=== PATIENT | female | born 1935 | race Caucasian/White ===

== ENCOUNTER → 2018-06-24 10:47 | Outpatient (CLI) | payer MEDICARE, SELFPAY ==
[2018-06-24 12:20] LABS: Alanine Aminotransferase 27 IU/L (9-52); Aspartate Aminotransferase 21 IU/L (14-36); BUN Creatinine Ratio 25.8 (6-22); Blood Urea Nitrogen 31 mg/dL (7-17); Calcium 9.2 mg/dL (8.4-10.2); Carbon Dioxide 23 mmol/L (22-32); Chloride 105 mmol/L (98-107); Cholesterol 107 mg/dL (140-199); Estimated Glomerular Filt Rate 43.2 mL/min (>60); Glucose 99 mg/dL (80-110); HDL Cholesterol 37 mg/dL (40-60); HEMOLYSIS < 15 (0-50); LDL Cholesterol Calculated 27 mg/dL (<100); Sodium 138 mmol/L (137-145); Triglycerides 215 mg/dL (35-150)
[2018-06-24 12:27] LABS: Potassium 5.5 mmol/L (3.4-5.1)
[2018-06-24 12:47] LABS: TSH w/ Reflex to FT4 8.27 uIU/mL (0.47-4.68)
[2018-06-24 13:31] LABS: Free T4, Direct Thyroxine 1.28 ng/dL (0.78-2.19)
== END ==
PROVIDERS: PCP Internal Medicine; Visit Provider Internal Medicine
DX: I10 Essential (primary) hypertension (principal); E78.5 Hyperlipidemia, unspecified; E03.9 Hypothyroidism, unspecified
CPT/HCPCS: 36415; 80048; 80061; 84439; 84443; 84450; 84460

== ENCOUNTER 2018-08-26 13:27 | Emergency (ER) | payer MEDICARE, SELFPAY ==
[2018-08-26 13:36] VITALS: BP 134/80; PULSE 85; RESP 15; TEMP 36.7; O2SAT 96
--- NOTE | 2018-08-26 14:32 | ED_ITS ---
HPI - Weakness General Chief complaint: Weakness Stated complaint: POTENTIAL DEHYRDATION Time Seen by Provider: 08/26/18 13:40 Source: patient Mode of arrival: ambulatory Limitations: no limitations History of Present Illness HPI Narrative: Patient complains of generalized weakness and fatigue for the last several weeks. She states she does not feel ill in any other way but that she constantly feels as though she has very low energy. Patient denies any fevers, chills, nausea, vomiting, diarrhea, cough, shortness of breath, chest pain, or abdominal pain. No urinary symptoms. No back pain. Severity: moderate Context: other (See above) Associated symptoms: denies other symptoms Related Data Home Medications Medication Instructions Recorded Confirmed amlodipine [Norvasc] 5 mg PO QDAY #0 05/06/13 08/26/18 pravastatin [Pravachol] 80 mg PO Q DAY #0 05/06/13 08/26/18 levothyroxine 100 mcg PO DAILY 08/26/18 08/26/18 losartan 50 mg PO DAILY 08/26/18 08/26/18 ranitidine HCl 1 tab PO DAILY PRN 08/26/18 08/26/18 Previous Rx's Medication Instructions Recorded ciprofloxacin HCl [Cipro] 500 mg PO BID #14 tab 08/26/18 levothyroxine 150 mcg PO DAILY #30 cap 08/26/18 potassium chloride 20 meq PO DAILY #105 ml 08/26/18 Allergies Allergy/AdvReac Type Severity Reaction Status Date / Time ginkgo biloba Allergy Mild GI UPSET Verified 08/26/18 13:36 Sulfa (Sulfonamide Allergy Mild FACIAL Verified 08/26/18 13:36 Antibiotics) SWELLING Review of Systems Review of Systems All systems reviewed & are unremarkable except as noted in HPI and below Constitutional Denies chills, Denies fever(s), Denies lethargy and Reports weakness Eyes Denies change in vision, Denies eye discharge, Denies irritation and Denies loss of vision ENT Ears, Nose, Mouth, and Throat: Denies change in voice, Denies neck pain and Denies sore throat Cardiovascular Denies chest pain, Denies irregular heart rhythm, Denies lightheadedness, Denies palpitations, Denies dyspnea, Denies dyspnea on exertion and Denies orthopnea Respiratory Denies cough, Denies dyspnea, Denies dyspnea on exertion and Denies wheezing Gastrointestinal Gastrointestinal: Denies abdominal pain, Denies change in bowel habits, Denies diarrhea, Denies nausea and Denies vomiting Genitourinary Denies hematuria, Denies flank pain, Denies urinary incontinence and Denies urinary urgency Musculoskeletal Denies neck pain Integumentary/Breasts Denies pruritus, Denies erythema, Denies rash and Denies wounds Neurologic Denies confusion, Denies loss of vision and Reports weakness Psychiatric Denies anxiety, Denies confusion, Denies depression, Denies homicidal ideation and Denies suicidal ideation Endocrine Denies palpitations Hematologic/Lymphatic Denies easy bruising Allergic/Immunologic Denies wheezing [facility] Medical History HTN (hypertension) (Acute) Hypothyroidism (Acute) Surgical History No pertinent past surgical history (Acute) Social History household members: none Exam Initial Vital Signs Initial Vital Signs: Vital Signs Temperature 98.0 F 08/26/18 13:36 Pulse Rate 85 08/26/18 13:36 Respiratory Rate 15 08/26/18 13:36 Blood Pressure 134/80 08/26/18 13:36 Pulse Oximetry 96 08/26/18 13:36 Const General: cooperative and well developed Nutritional Appearance: well nourished Orientation: alert, awake, oriented x3 and not confused [facility] Head: normocephalic and atraumatic Ears: external ears normal Nose: external nose normal and No nasal discharge Face and sinus: face symmetric and No dry mucous membranes Mouth: oral mucosae normal and moist mucous membranes Teeth and gingiva: dentition normal Eyes General: appearance normal, both eyes and all related structures Eyelids: eyelids normal Conjunctivae: conjunctivae normal Sclera: sclerae normal Pupils: PERRL EOM: EOM intact bilaterally Neck Neck: normal visual inspection, trachea midline, No lymphadenopathy, No midline deformity and No JVD Lymphatic: No lymphedema Chest Chest: normal inspection of the chest Resp Effort & Inspection: normal respiratory effort, able to speak in complete sentences, no respiratory distress and no use of accessory muscles Auscultation: clear to auscultation bilaterally, no rales, no rhonchi and no wheezes Cardio Rate: regular rate Rhythm: regular rhythm Heart Sounds: no click, no gallops, no murmurs and no rubs Pulses: normal peripheral pulses GI Inspection: non-distended Palpation: soft, no hepatosplenomegaly, No guarding, No pulsatile mass and No tender Auscultation: normal bowel sounds Back/Spine/Pelvis Back: No CVA tenderness Cervical Spine: cervical ROM normal and No pain with cervical ROM Thoracic/Lumbar Spine: thoracic and lumbar spine normal to inspection Skin General: no rashes or lesions noted, No jaundice and No petechiae Neuro General: alert, oriented x3, gait normal and no focal motor deficits Speech: speech normal Extrem General: full ROM, no clubbing, cyanosis or edema, no pedal edema and no calf tenderness Psych Appearance: well kempt Mental Status: mental status grossly normal Attitude: cooperative Thought Content: normal and suicidality Judgment: judgment good Course Course Narrative: Patient was worked up for her generalized weakness and fatigue with labs and urinalysis. She was found have a urinary tract infection , hypokalemia, anemia, and a TSH of 19.3. I did look back at [facility] previous records and found that in June, her TSH was just over 8. Patient has been on Synthroid for a little over a year she states and she is currently at a dose of 100 mcg per day. I have discussed with the patient that in addition to treating the temporary conditions urinary tract infection and hypokalemia, we will also need to adjust her Synthroid. I will put her up to 150 mcg per day, but she will need to see her primary care physician to determine whether this is a good long-term plan. Patient's brother is present, and states he will call the clinic tomorrow and set up an appointment to her physician soon. Patient was treated in the emergency department with IV fluids , as well as antibiotics and potassium. Orders Ordered: ED Orders 08/26/18 13:56 Complete Blood Count AUTO DIFF Stat Comprehensive Metabolic Panel Stat 08/26/18 15:58 Thyroid Stimulating Hormone Stat 08/26/18 16:51 Urine Culture Stat Discontinued Medications Ciprofloxacin (Cipro) 500 mg PO NOW ONE Stop: 08/26/18 17:01 Last Admin: 08/26/18 17:07 Dose: 500 mg Sodium Chloride (Normal Saline 0.9%) 1,000 mls @ 1,000 mls/hr IV BOLUS ONE Stop: 08/26/18 15:31 Last Admin: 08/26/18 14:37 Dose: 1,000 mls/hr Potassium Chloride (Klor-Con M20) 40 meq PO NOW ONE Stop: 08/26/18 17:16 Last Admin: 08/26/18 17:16 Dose: 40 meq Vital Signs - 8 hr 08/26/18 13:36 08/26/18 14:53 08/26/18 17:05 Temperature 98.0 F Pulse Rate 85 59 L 82 Respiratory Rate 15 18 Blood Pressure 134/80 Blood Pressure [Right Arm] 121/60 114/68 Pulse Oximetry 96 98 99 MDM - Weakness Medical Records Attestation: I reviewed the patient's medical records. Lab Data Attestation: I reviewed the patient's lab results. Result diagrams: 08/26/18 13:56 08/26/18 13:56 Lab Results 08/26/18 08/26/18 08/26/18 Range/Units 13:56 13:56 13:56 WBC 10.8 (4.5-11.0) X10^3/uL RBC 3.46 L (4.0-5.2) X10^6/uL Hgb 8.3 L (12.0-16.0) g/dL Hct 25.9 L (36-46) % MCV 75.0 L (80-100) fL MCH 23.9 L (26-34) PG MCHC 31.8 (30-36) % RDW 19.6 H (11.6-14.8) % Plt Count 417 H (150-400) X10^3/uL Neut % (Auto) 78.7 H (50-75) % Lymph % (Auto) 11.9 L (25-40) % Emanuel % (Auto) 6.9 (3-14) % Eos % (Auto) 1.6 L (2-4) % Baso % (Auto) 0.9 (0-2) % Neut # (Auto) 8500 H (4132-1207) /uL Sodium 141 (137-145) mmol/L Potassium 3.0 L (3.4-5.1) mmol/L Chloride 106 (98-107) mmol/L Carbon Dioxide 24 (22-32) mmol/L BUN 16 (7-17) mg/dL Creatinine 0.90 (0.52-1.04) mg/dL Estimated GFR > 60.0 (>60) mL/min BUN/Creatinine Ratio 17.8 (6-22) Glucose 98 (80-110) mg/dL Calcium 8.3 L (8.4-10.2) mg/dL Total Bilirubin 0.5 (0.2-1.3) mg/dL AST 16 (14-36) IU/L ALT 18 (9-52) IU/L Alkaline Phosphatase 63 (38-126) U/L Total Protein 5.7 L (6.3-8.2) g/dL Albumin 2.8 L (3.5-5.0) g/dL Globulin 2.9 (1.7-4.1) g/dL Albumin/Globulin Ratio 1.0 (1.0-2.8) TSH 19.30 H (0.47-4.68) uIU/mL Urine Dip Bedside Urine Glucose Negative Bedside Urine Bilirubin + 1 Bedside Urine Ketone - Negative Urine Specific [place] 1.025 Bedside Urine Occult Blood - Negative Bedside Urine pH 6.0 Bedside Urine Protein - Negative Bedside Urine Urobilinogen - Negative Bedside Urine Nitrite + Positive Bedside Urine Leukocytes +/- 15 Esterase Discharge Plan Departure Patient Disposition: Home Clinical Impression: Hypothyroidism, Acute UTI, Hypokalemia Discharge Date/Time: 08/26/18 17:26 Interventions: ED Discharge Assessment Last Done: 08/26/18 17:24 Instructions: DI for Urinary Tract Infection (UTI), DI for Hypothyroidism Activity Restrictions/Additional Instructions: Urinalysis was positive for infection. Your thyroid stimulating hormone (the hormone from your brain that tells your thyroid to work) was very very high today. In fact, it was over twice as high as it was in June. As such, we will increase your dose of Synthroid, but it is very important that he follow up with your primary doctor to discuss what to do after this. Prescriptions: New ciprofloxacin HCl [Cipro] 500 mg tablet 500 mg PO BID Qty: 14 RF: 0 levothyroxine 150 mcg capsule 150 mcg PO DAILY Qty: 30 RF: 0 potassium chloride 20 mEq/15 mL liquid 20 meq PO DAILY Qty: 105 RF: 0 No Action amlodipine [Norvasc] 5 MG tablet 5 mg PO QDAY Qty: 0 RF: 0 pravastatin [Pravachol] 80 MG tablet 80 mg PO Q DAY Qty: 0 RF: 0 losartan 50 mg tablet 50 mg PO DAILY RF: 0 levothyroxine 100 mcg tablet 100 mcg PO DAILY RF: 0 ranitidine HCl 150 mg tablet 1 tab PO DAILY PRN (Reason: Acid Reflux) RF: 0 Referrals: Lucrecia Morgan MD [Primary Care Provider] -
[2018-08-26 14:37] LABS: Add Manual Diff / Slide Review NO; Basophils Percent Auto 0.9 % (0-2); Eosinophils Percent Auto 1.6 % (2-4); Hematocrit 25.9 % (36-46); Hemoglobin 8.3 g/dL (12.0-16.0); Lymphocytes Percent Auto 11.9 % (25-40); Mean Corpuscular HGB Conc 31.8 % (30-36); Mean Corpuscular Hemoglobin 23.9 PG (26-34); Monocytes Percent Auto 6.9 % (3-14); Neutrophils Absolute Auto 8500 /uL (3000-5900); Neutrophils Percent Auto 78.7 % (50-75); Platelet Count 417 X10^3/uL (150-400); Red Blood Cell Count 3.46 X10^6/uL (4.0-5.2); Red Cell Distribution Width 19.6 % (11.6-14.8); White Blood Cell Count 10.8 X10^3/uL (4.5-11.0)
[2018-08-26] MEDS: SODIUM CHLORIDE 0.9% 1,000 ML 1000 ML IV (14:37)
[2018-08-26 14:43] LABS: Alanine Aminotransferase 18 IU/L (9-52); Albumin 2.8 g/dL (3.5-5.0); Alkaline Phosphatase 63 U/L (38-126); Aspartate Aminotransferase 16 IU/L (14-36); BUN Creatinine Ratio 17.8 (6-22); Bilirubin Total 0.5 mg/dL (0.2-1.3); Blood Urea Nitrogen 16 mg/dL (7-17); Calcium 8.3 mg/dL (8.4-10.2); Carbon Dioxide 24 mmol/L (22-32); Chloride 106 mmol/L (98-107); Estimated Glomerular Filt Rate > 60.0 mL/min (>60); Globulin 2.9 g/dL (1.7-4.1); Glucose 98 mg/dL (80-110); HEMOLYSIS 27 (0-50); Sodium 141 mmol/L (137-145); Total Protein 5.7 g/dL (6.3-8.2)
[2018-08-26 14:53] VITALS: BP 121/60; PULSE 59; O2SAT 98
[2018-08-26 17:05] VITALS: BP 114/68; PULSE 82; RESP 18; O2SAT 99
[2018-08-26] MEDS: CIPROFLOXACIN 500 MG TABLET PO (17:07)
[2018-08-26] MEDS: POTASSIUM CHLORIDE 20 MEQ TAB 40 MEQ PO (17:16)
== END 2018-08-26 17:26 | disposition home or self-care (01) ==
PROVIDERS: Emergency Provider Emergency Medicine; Family Provider Internal Medicine; PCP Internal Medicine
DX: E03.9 Hypothyroidism, unspecified (principal); N39.0 Urinary tract infection, site not specified; E87.6 Hypokalemia
CPT/HCPCS: 36591; 80053; 81003; 84443; 85025; 87077; 87086; 87186; 96360; 96361; 99283; 99284

== ENCOUNTER → 2018-09-03 10:25 | Outpatient (CLI) | payer MEDICARE, SELFPAY ==
--- NOTE | 2018-09-03 | DI.CT.S_ITS ---
PROCEDURE: CT ABDOMEN PELVIS W CON INDICATIONS: Abnormal weight loss TECHNIQUE: After the administration of intravenous contrast, 5 mm thick sections acquired from the diaphragm to the symphysis. 5 mm coronal and sagittal reformats were acquired. For radiation dose reduction, the following was used: automated exposure control, adjustment of mA and/or kV according to patient size. COMPARISON: None. FINDINGS: Image quality: Excellent. ABDOMEN: Lung bases: Lung bases are clear. Heart size is normal. Solid organs: Liver is normal in size and enhancement. Gallbladder appears normal. Biliary system is non dilated. Pancreas enhances normally. Spleen is normal in size and enhancement. No adrenal nodules. Kidneys demonstrate normal size and enhancement, without hydronephrosis. Peritoneum and bowel: Small bowel loops demonstrate normal wall thickness and caliber. No free fluid or air in the perihepatic space, but there is a slight amount of free fluid in the right paracolic gutter. There is a large malignant appearing mass involving the right colon, extending into the hepatic flexure measuring up to 10.7 cm transverse, 7.2 cm AP and up to 8-9 cm craniocaudad. This is associated with a small amount of adjacent pericolonic edema and at the posterior inferior border of the proximal transverse colon several soft tissue nodules are present at the bowel wall possibly representing abutting adenopathy or mural nodularity of that portion of the colon. Nodes and vessels: No retroperitoneal or mesenteric adenopathy by size criteria. Aorta and inferior vena cava are normal in size. Miscellaneous: No ventral hernias. PELVIS: Genitourinary: Bladder wall thickness is normal. Miscellaneous: No inguinal hernias or adenopathy. A normal appendix is found at the right lower quadrant. Left and sigmoid colonic diverticulosis is prominent without acute diverticulitis. There is a small amount of free fluid deep within the pelvis without abnormal marginal nodularity or contrast enhancement. Bones: No suspicious bony lesions. No vertebral body compression fractures. 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 Definite metastatic disease is not seen but there is a small amount of free fluid within the abdomen and pelvis is noted. Surgical consultation is recommended. The findings were called immediately to the ordering physician and discussed. Dictated by: Chase Menjivar M.D. on 09/03/2018 at 13:18 Approved by: Chase Menjivar M.D. on 09/03/2018 at 13:29
== END ==
PROVIDERS: PCP Internal Medicine; Visit Provider Internal Medicine
DX: R63.4 Abnormal weight loss (principal)
CPT/HCPCS: 74177; Q9967

== ENCOUNTER → 2018-09-10 13:32 | Outpatient (CLI) | payer MEDICARE, SELFPAY | PROVIDERS: PCP Internal Medicine; Visit Provider General Practice | DX: C18.3 Malignant neoplasm of hepatic flexure (principal) ==

== ENCOUNTER → 2018-10-06 13:29 | Outpatient (CLI) | payer MEDICARE, SELFPAY ==
--- NOTE | 2018-10-06 | DI.MRI.S_ITS ---
PROCEDURE: MR HEAD/BRAIN WO/W CON INDICATIONS: DEMENTIA TECHNIQUE: Noncontrast axial T1 spin echo, axial T2 fast spin echo, sagittal and axial FLAIR, coronal T2 fast spin echo, axial gradient echo, axial diffusion and ADC through the brain. After the administration of contrast, axial and coronal T1 spin echo with fat saturation through the brain. COMPARISON: None. FINDINGS: Image quality: Diagnostic. CSF spaces: Basal cisterns are patent. No extra-axial fluid collections. Ventricles are normal in size and shape. Brain: No midline shift. No intracranial bleeds or masses. No abnormal intracranial enhancement. There is cerebral volume loss for age. There is periventricular white matter chronic small vessel ischemic change. The brainstem appears normal. Diffusion-weighted images demonstrate no acute ischemic insults. No chronic ischemic insults. Normal intravascular flow voids are present. Skull and face: Calvarial marrow is normal in signal. Orbits appear normal. A right lens replacement can be seen. Sinuses: Sinuses and mastoids appear clear. IMPRESSION: No masses or abnormal enhancement can be seen. No findings of acute or subacute infarction can be seen. Note is made of age-appropriate brain parenchymal volume loss and chronic small vessel ischemic changes. Dictated by: Christopher Zacarias M.D. on 10/06/2018 at 14:02 Approved by: Christopher Zacarias M.D. on 10/06/2018 at 14:04
== END ==
PROVIDERS: PCP Internal Medicine; Visit Provider Internal Medicine
DX: F03.90 Unspecified dementia, unspecified severity, without behavioral disturbance, psychotic disturbance, mood disturbance, and anxiety (principal)
CPT/HCPCS: 70553; A9579

== ENCOUNTER → 2018-12-10 09:27 | Outpatient (CLI) | payer MEDICARE, SELFPAY ==
--- NOTE | 2018-12-10 09:30 | DI.MG.S_ITS ---
BILATERAL DIGITAL DIAGNOSTIC MAMMOGRAM 3D/2D POST LUMPECTOMY: 12/10/2018 CLINICAL: Left Breast Lump. Comparison is made to exams dated: 11/21/2016 mammogram, 10/18/2015 mammogram, and 05/04/2014 mammogram - [facility]. The tissue of both breasts is predominantly fatty. There are benign post operative findings in the left breast. There are also benign vascular calcifications in both breasts. There are coarse dystrophic calcifications in the left breast at 12 o'clock anterior depth. These are not significantly changed and correlates as palpated. No other significant masses, calcifications, or other findings are seen in either breast. IMPRESSION: There is no mammographic evidence of malignancy. A 1 year screening mammogram is recommended. This exam was interpreted at Station ID: [id number]. NOTE: For mammograms, a report in lay terms will be sent to the patient. Approximately 15% of breast malignancies will not be visualized mammographically. In the management of a palpable breast mass, a negative mammogram must not discourage biopsy of a clinically suspicious lesion. Electronically Signed By: Zoila Grider M.D. lk/:12/10/2018 10:42:56 letter sent: Normal Exam ACR BI-RADS Category 2: Benign Finding(s) [id number]
== END ==
PROVIDERS: PCP Internal Medicine; Visit Provider Internal Medicine
DX: R92.8 Other abnormal and inconclusive findings on diagnostic imaging of breast (principal); N63.20 Unspecified lump in the left breast, unspecified quadrant
CPT/HCPCS: 77066; G0279

== ENCOUNTER → 2019-01-03 09:45 | Outpatient (CLI) | payer MEDICARE, SELFPAY ==
--- NOTE | 2019-01-03 | DI.US.S_ITS ---
ULTRASOUND OF LEFT BREAST: 01/03/2019 CLINICAL: Palpable left breast lump. Comparison is made to exams dated: 12/10/2018 mammogram, 12/10/2017 mammogram, 11/21/2016 mammogram, 10/18/2015 mammogram, 05/04/2014 mammogram, and 05/03/2013 mammogram - [facility]. Color flow and real-time ultrasound of the left breast were performed. Boateng scale images of the real-time examination were reviewed. There is a benign 2.3 cm x 0.9 cm x 1.7 cm hypoechoid mass in the left breast at 1 o'clock anterior depth 2 cm from the nipple. Its irregular shape and dense posterior shadowing is secondary to close abutment of multiple rim calcifications noted on comparison mammograms. There is some vascularity peripheral to it. This correlates as palpated and with mammography findings. No disturbed parenchymal echotexture. IMPRESSION: BENIGN There is no sonographic evidence of malignancy. The 2.3 cm x 0.9 cm x 1.7 cm irregular mass in the left breast is consistent with dystrophic calcifications/fat necrosis and is benign, however, the patient requests that this be surgically excised. Otherwise, a 1 year screening mammogram is recommended. This exam was interpreted at Station ID: [id number]. Electronically Signed By: Markel Rdz M.D. aty/:01/03/2019 12:05:11 letter sent: Clinical Evaluation Ultrasound BI-RADS: 2 Benign
== END ==
PROVIDERS: PCP Internal Medicine; Visit Provider Internal Medicine
DX: R92.8 Other abnormal and inconclusive findings on diagnostic imaging of breast (principal); N63.21 Unspecified lump in the left breast, upper outer quadrant
CPT/HCPCS: 76642

== ENCOUNTER 2019-02-22 07:04 | Day surgery (SDC) | payer MEDICARE, SELFPAY ==
[2019-02-22] MEDS: PROPARACAINE 0.5% OPHTH SOL 2 DROPS EYE-OP (07:27)
[2019-02-22] MEDS: CATARACT EYE COMPOUND (10 DROPS/SYRINGE) 3 DROPS EYE-OP ×2 (07:28→07:35)
[2019-02-22 07:37] VITALS: BP 149/75; PULSE 62; RESP 15; TEMP 36.4; O2SAT 94; BMI 25.7
--- NOTE | 2019-02-22 08:21 | PM.PREOP ---
Pre-operative Note Interval Note History & Physical reviewed/Exam performed by Physician: No Changes to H&P: No
--- NOTE | 2019-02-22 08:22 | PM.OP.1 ---
Operative Date/Time/Diagnoses Pre-op diagnosis: Nuclear Cataract Left eye Post-op diagnosis: same Procedure & Clinicians Surgeon: Js Quijano Anesthesia Type: MAC +/- and Sedation Operative Notes Procedure in detail: Patient brought to the operating suite. Tetracaine drops placed in the left eye. Patient was prepped and draped in sterile manner. Wire lid speculum was placed in the eye. Betadine drops were placed on the eye. This was irrigated. Lidocaine jelly was placed on the eye. A paracentesis port was created with a side-port blade. 0.1 mL 1% preservative free lidocaine was injected into the anterior chamber. The anterior chamber was deepened with viscoelastic. 2.6 mm keratome was used to create a temporal clear corneal incision. The pupil was floppy and miotic. A 6.25 mm malugyn ring was used to enlarge the pupil. Cystotome and Utrata forceps were used to create continuous tear capsulorrhexis. Balanced salt solution was used to hydro dissect the nucleus. The phacoemulsification handpiece was inserted and the nucleus was removed using the stop and chop technique. The irrigation aspiration handpiece was inserted and the remaining cortex was removed. Anterior chamber was deepened with viscoelastic. An Singh ZCB00 intraocular lens with a power of 24.5 was injected into the capsular bag. The malugyn ring was removed. Irrigation aspiration handpiece was inserted and the remaining viscoelastic was removed. Incision was hydrated with balanced salt solution and found to be leak free with pressure with Weck-Frances sponges. 0.1 mL Vigamox injected anterior chamber. 0.3 mL Kenalog 10 mg was injected subconjunctivally. Lid speculum was removed. The patient left the operating room in excellent condition. Complications: none Condition: stable Disposition: same day surgery
[2019-02-22] MEDS: MOXIFLOXACIN OPHTH DROPS 3 ML BOTTLE 2 DROPS INJ (08:35)
[2019-02-22] MEDS: PHENYLEPHRINE/LIDOCAINE VIAL (OR) 0.2 ML EYE-OP (08:35)
[2019-02-22] MEDS: TRIAMCINOLONE 50 MG/5 ML VIAL INJ (08:36)
[2019-02-22] MEDS: LIDOCAINE JELLY 2% 5 ML 1 APPLIC TOP (08:36)
[2019-02-22] MEDS: CHONDROIDTIN/SOD HYALURONATE 1.05 ML SYRINGE INTRAOCULA (08:36)
[2019-02-22] MEDS: BALANCED SALT IRRIG SOLN NO.2 500 ML, EPINEPHrine 1 MG IRR (08:37)
[2019-02-22] MEDS: TETRACAINE 0.5% OPHTH DROPS 4 ML 2 DROPS EYE-OP (08:37)
[2019-02-22 08:50] VITALS: BP 145/73; PULSE 55; RESP 16; TEMP 36.9; O2SAT 98
== END 2019-02-22 09:02 | disposition home or self-care (01) ==
PROVIDERS: PCP Internal Medicine; Visit Provider Ophthalmology
PROC: (CPT 66982; principal; 2019-02-22 08:15)
DX: H25.12 Age-related nuclear cataract, left eye (principal)
CPT/HCPCS: 66982; J0171; J2250; J3010; J3301

== ENCOUNTER → 2020-03-13 10:21 | Outpatient (CLI) | payer MEDICARE, SELFPAY ==
[2020-03-13 11:20] LABS: Add Manual Diff / Slide Review NO; Basophils Absolute Auto 100 /uL (0-100); Basophils Percent Auto 1.1 % (0-2); Eosinophils Absolute Auto 300 /uL (0-450); Eosinophils Percent Auto 2.7 % (2-4); Hematocrit 40.4 % (36-46); Hemoglobin 13.5 g/dL (12.0-16.0); Lymphocytes Absolute Auto 1900 /uL (1100-4500); Lymphocytes Percent Auto 19.8 % (25-40); Mean Corpuscular HGB Conc 33.4 % (30-36); Mean Corpuscular Hemoglobin 29.6 PG (26-34); Mean Corpuscular Volume 88.5 fL (80-100); Monocytes Absolute Auto 500 /uL (0-900); Monocytes Percent Auto 5.4 % (3-14); Neutrophils Absolute Auto 6600 /uL (1500-7000); Platelet Count 251 X10^3/uL (150-400); Red Blood Cell Count 4.57 X10^6/uL (4.0-5.2); Red Cell Distribution Width 14.1 % (11.6-14.8); White Blood Cell Count 9.3 X10^3/uL (4.5-11.0)
[2020-03-13 11:32] LABS: HEMOLYSIS < 15 (0-50); Iron 58 ug/dL (37-170)
[2020-03-13 11:34] LABS: Alanine Aminotransferase 18 IU/L (<35); Albumin 4.5 g/dL (3.5-5.0); Albumin Globulin Ratio 1.3 (1.0-2.8); Alkaline Phosphatase 90 U/L (38-126); Aspartate Aminotransferase 27 IU/L (14-36); BUN Creatinine Ratio 20.1 (6-22); Bilirubin Total 0.5 mg/dL (0.2-1.3); Blood Urea Nitrogen 31 mg/dL (7-17); Carbon Dioxide 21 mmol/L (22-32); Chloride 110 mmol/L (98-107); Cholesterol 128 mg/dL (140-199); Estimated Glomerular Filt Rate 32.3 mL/min (>60); Globulin 3.5 g/dL (1.7-4.1); Glucose 106 mg/dL (80-110); HDL Cholesterol 38 mg/dL (40-60); HEMOLYSIS < 15 (0-50); LDL Cholesterol Calculated 34 mg/dL (<100); Potassium 4.8 mmol/L (3.4-5.1); Sodium 141 mmol/L (137-145); Triglycerides 278 mg/dL (35-150)
[2020-03-13 11:43] LABS: Percent Iron Saturation 24 % (15-50); Total Iron Binding Capacity 241 ug/dL (265-497); Transferrin 201 mg/dL (206-381)
[2020-03-13 12:04] LABS: TSH w/ Reflex to FT4 0.13 uIU/mL (0.47-4.68)
[2020-03-13 12:07] LABS: Ferritin 328 ng/mL (11-264)
[2020-03-13 12:30] LABS: Free T4, Direct Thyroxine 1.56 ng/dL (0.78-2.19)
== END ==
PROVIDERS: PCP Internal Medicine; Referring Provider Internal Medicine; Visit Provider Internal Medicine
DX: N18.9 Chronic kidney disease, unspecified (principal); D50.9 Iron deficiency anemia, unspecified; E78.5 Hyperlipidemia, unspecified; E03.9 Hypothyroidism, unspecified
CPT/HCPCS: 36415; 80053; 80061; 82728; 83540; 83550; 84439; 84443; 85025

== ENCOUNTER → 2020-05-09 16:58 | Outpatient (CLI) | payer MEDICARE, SELFPAY ==
[2020-05-09 17:58] LABS: Add Manual Diff / Slide Review NO; Basophils Absolute Auto 100 /uL (0-100); Basophils Percent Auto 0.7 % (0-2); Eosinophils Absolute Auto 200 /uL (0-450); Eosinophils Percent Auto 2.1 % (2-4); Hemoglobin 12.9 g/dL (12.0-16.0); Lymphocytes Absolute Auto 1600 /uL (1100-4500); Lymphocytes Percent Auto 17.3 % (25-40); Mean Corpuscular Hemoglobin 29.3 PG (26-34); Mean Corpuscular Volume 86.2 fL (80-100); Monocytes Absolute Auto 500 /uL (0-900); Monocytes Percent Auto 5.5 % (3-14); Neutrophils Absolute Auto 6700 /uL (1500-7000); Neutrophils Percent Auto 74.4 % (50-75); Platelet Count 277 X10^3/uL (150-400); Red Blood Cell Count 4.41 X10^6/uL (4.0-5.2)
[2020-05-09 18:42] LABS: TSH w/ Reflex to FT4 0.18 uIU/mL (0.47-4.68)
[2020-05-09 19:10] LABS: Free T4, Direct Thyroxine 1.87 ng/dL (0.78-2.19)
== END ==
PROVIDERS: PCP Internal Medicine; Referring Provider Internal Medicine; Visit Provider Internal Medicine
DX: D50.9 Iron deficiency anemia, unspecified (principal); E03.9 Hypothyroidism, unspecified
CPT/HCPCS: 36415; 84439; 84443; 85025

== ENCOUNTER 2020-08-01 19:50 | Observation (INO) | payer MEDICARE, SELFPAY ==
[2020-08-01] VITALS (11 sets, daily range): BP systolic 136–157; BP diastolic 67–79; PULSE 72–88; RESP 16–20; TEMP 36.7; O2SAT 94–99
--- NOTE | 2020-08-01 20:30 | PC.NURSE ---
Pt arrives via EMS states generalized weakness, was unable to get out of chair earlier today. Denies known injury or pain at triage. States if she bears weight back of legs hurt. Pt lives alone, states she usually walks normally and denies use of any assitive devices. Brother at bedside states pt had a similar episode recently at a restaurant where she had difficulty getting up and ambulating from chair.
--- NOTE | 2020-08-01 20:46 | ED.GENADULT ---
HPI - General Adult General Chief complaint: Weakness Stated complaint: Weakness Time Seen by Provider: 08/01/20 20:29 Source: patient and EMS Mode of arrival: EMS Limitations: no limitations History of Present Illness HPI narrative: 84-year-old female who was brought in by EMS after they were called by the patient's brother for evaluation of several days of progressive generalized weakness. The patient does live alone. She cooks for herself. Dresses herself. Does her own laundry. Walks around her house without the aid of any devices. Patient's brother states that for the past couple days he has noticed that the patient has be come more weak. Unable to stand up. Complaining of pain behind both of her legs. There has been no specific trauma that is reported. Patient denies fevers, urinary symptoms. Denies chest pain or shortness of breath or abdominal pain. Difficult for her to describe the pain that she has been having behind her legs. She also is complaining of pain along the outsides of both of her legs with the right being greater than left. No back pain. No change in bowel habits. Patient's brother states that it got to the point today that she could not get up out of her chair to come let him into the house. Related Data Home Medications Medication Instructions Recorded Confirmed amlodipine [Norvasc] 5 mg PO QDAY #0 05/06/13 08/26/18 pravastatin [Pravachol] 80 mg PO Q DAY #0 05/06/13 08/26/18 levothyroxine 100 mcg PO DAILY 08/26/18 08/26/18 losartan 50 mg PO DAILY 08/26/18 08/26/18 ranitidine HCl 1 tab PO DAILY PRN 08/26/18 08/26/18 Previous Rx's Medication Instructions Recorded ciprofloxacin HCl [Cipro] 500 mg PO BID #14 tab 08/26/18 levothyroxine 150 mcg PO DAILY #30 cap 08/26/18 potassium chloride 20 meq PO DAILY #105 ml 08/26/18 Allergies Allergy/AdvReac Type Severity Reaction Status Date / Time Sulfa (Sulfonamide Allergy Intermediate FACIAL Verified 02/22/19 07:25 Antibiotics) SWELLING ginkgo biloba Allergy Mild GI UPSET Verified 02/22/19 07:25 Review of Systems Constitutional Constitutional: Denies fever(s) and Denies headache(s) Eyes Eyes: Denies change in vision ENT Ears, Nose, Mouth, and Throat: Denies vertigo, Reports dizziness, Denies headache(s), Denies sinus pain and Denies sore throat Cardiovascular Cardiovascular: Denies chest pain, Denies rapid heart rate, Denies irregular heart rhythm, Denies lightheadedness and Denies dyspnea Respiratory Respiratory: Denies cough and Denies dyspnea Gastrointestinal Gastrointestinal: Denies change in bowel habits, Denies nausea and Denies vomiting Genitourinary Genitourinary: Denies dysuria Genitourinary: Denies dysuria Musculoskeletal Musculoskeletal: Denies arthralgias, Denies back pain, Denies arthralgias, Reports muscle weakness, Reports myalgias (Bilateral calf muscles) and Denies tingling Integumentary/Breasts Skin/Breast: Denies lesions and Denies rash Neurologic Neurologic: Denies abnormal movements, Denies abnormal speech, Denies behavioral changes, Denies confusion, Denies vertigo, Reports dizziness, Denies headache(s) and Denies tingling Psychiatric Psychiatric: Denies behavioral changes and Denies confusion Hematologic/Lymphatic Hematologic/Lymphatic: Denies easy bleeding and Denies easy bruising Allergic/Immunologic Allergic/Immunologic: Denies urticaria Patient History Medical History HTN (hypertension) (Acute) Hyperlipidemia (Acute) Hypothyroidism (Acute) Skin cancer (Acute) Surgical History (Updated 08/02/20 @ 02:44 by AFUA Woodall) Breast cancer (Acute) History of bilateral cataract extraction (Acute) History of hysterectomy (Acute) No pertinent past surgical history (Acute) Family History (Updated 08/02/20 @ 02:40 by AFUA Woodall) Father Heart disease Mother Surgical complication Daughter Hypothyroidism Social History household members: none Smoking Status: Never smoker alcohol intake: never Exam Initial Vital Signs Initial Vital Signs: Vital Signs Temperature 98.0 F 08/01/20 19:53 Pulse Rate 87 08/01/20 19:53 Respiratory Rate 20 08/01/20 19:53 Blood Pressure 136/74 08/01/20 19:53 Pulse Oximetry 94 08/01/20 19:53 Const General: cooperative and comfortable Limitations: mental status not altered HENMT Head: normal to inspection and normocephalic Ears: hearing grossly normal bilaterally Nose: external nose normal Eyes Pupils: PERRL Resp Effort & Inspection: normal respiratory effort Auscultation: clear to auscultation bilaterally Cardio Rate: regular rate Rhythm: regular rhythm GI Inspection: non-distended Palpation: soft, No firm and No tender Back/Spine/Pelvis Back: No CVA tenderness Cervical Spine: No cervical spinal tenderness Skin Lesions: no lesions Rashes: no rashes Neuro General: patient alert, patient awake and patient oriented x3 Cranial Nerves: CN's II-XI intact bilaterally Cognition: normal cognition Speech: speech normal Sensory Exam: no sensory deficits noted Other: Patient reports no decrease in sensation bilateral lower extremities. She can only lift her legs up off the bed a few short inches in cannot keep them off the bed before they fall back down. She states this is secondary to a pain behind her legs and also because of weakness. Extrem General: capillary refill normal and No edema Other: Patient has passive range of motion without discomfort of her ankles and knees. Did describe some lateral thigh tenderness with flexion of the hips. This was bilateral with right being greater than left. Patient does not have any specific calf muscle tenderness on palpation. Scores GCS Edwin coma scale eye opening: Spontaneous Edwin coma scale verbal response: Orientated [employer] coma scale motor response: Obey commands Edwin coma scale total score: 15 Course Orders Ordered: ED Orders 08/01/20 20:49 Acetaminophen Stat Complete Blood Count AUTO DIFF Stat Comprehensive Metabolic Panel Stat Ethanol (ETOH) Stat Free T3, Triiodothyronine Free Stat Lipase Stat Prothrombin Time INR Stat Salicylate Stat Thyroid Stimulating Hormone Stat Troponin & CK Cardiac Panel Stat 08/01/20 21:00 Ammonia (NH3) Stat 08/01/20 22:25 Urinalysis and Microscopic Stat Urine Culture Stat 08/01/20 23:15 Consult to [facility] - Art Psychotherapist Stat 08/02/20 00:40 COVID19 -ED/INPAT/OR/L&D Stat Acetaminophen (Tylenol) 650 mg PO Q6HR PRN PRN Reason: Fever/Mild Pain (1-3) Al Hydrox/Mg Hydrox/Simethicone (Maalox Plus) 30 ml PO Q6HR PRN PRN Reason: Dyspepsia Bisacodyl (Dulcolax) 10 mg [place] DAILY PRN PRN Reason: Constipation Calcium Carbonate (Tums) 1,000 mg PO Q4HR PRN PRN Reason: Dyspepsia Docusate Sodium (Colace) 100 mg PO BID PRN PRN Reason: Constipation Enoxaparin Sodium (Lovenox) 40 mg SUBCUT DAILY MERI Sodium Chloride (Normal Saline 0.45%) 1,000 mls @ 75 mls/hr IV CONT MERI Last Admin: 08/02/20 02:21 Dose: 75 mls/hr Documented by: JOSE CRUZ Naloxone HCl (Narcan) 0.2 mg IV Q2MIN PRN PRN Reason: Opiate Reversal Ondansetron HCl (Zofran) 4 mg IV Q8HR PRN PRN Reason: Nausea And Vomiting Tramadol HCl (Ultram) 50 mg PO TID PRN PRN Reason: Pain, Moderate (4-6) Discontinued Medications Sodium Chloride (Normal Saline 0.9%) 1,000 mls @ 500 mls/hr IV BOLUS ONE Stop: 08/01/20 22:45 Last Infusion: 08/01/20 23:47 Dose: 0 mls/hr Documented by: Admin: 08/01/20 21:15 Dose: 500 mls/hr Documented by: VIJAY Ceftriaxone Sodium/Dextrose (Rocephin) 1 gm in 50 mls @ 100 mls/hr IV NOW ONE Stop: 08/02/20 02:03 Last Admin: 08/02/20 02:21 Dose: 100 mls/hr Documented by: JOSE CRUZ Nitrofurantoin Macrocrystals (Macrobid 100 Mg Capsule) 100 mg PO NOW ONE Stop: 08/01/20 23:16 Last Admin: 08/01/20 23:20 Dose: 100 mg Documented by: VIJAY Vital Signs Vital signs: Vital Signs - 8 hr 08/01/20 21:30 08/01/20 22:00 08/01/20 22:26 Pulse Rate 78 76 73 Respiratory Rate 16 18 Blood Pressure 151/79 H Pulse Oximetry 97 98 99 08/01/20 22:30 08/01/20 23:00 08/01/20 23:30 Pulse Rate 79 72 83 Respiratory Rate 16 Blood Pressure 157/71 H 157/79 H Pulse Oximetry 97 96 98 08/01/20 23:31 08/02/20 00:00 09/17/20 00:28 Pulse Rate 74 71 84 Respiratory Rate Blood Pressure 148/67 H 159/68 H Pulse Oximetry 98 98 97 Medical Decision Making Lab Data Lab results reviewed: Yes I reviewed the patient's lab results. Result diagrams: 08/01/20 20:49 08/01/20 20:49 Labs: Lab Results 08/01/20 08/01/20 08/01/20 Range/Units 20:49 20:49 20:49 WBC 11.9 H (4.5-11.0) X10^3/uL RBC 4.44 (4.0-5.2) X10^6/uL Hgb 12.1 (12.0-16.0) g/dL Hct 38.3 (36-46) % MCV 86.4 (80-100) fL MCH 27.3 (26-34) PG MCHC 31.6 (30-36) % RDW 15.3 H (11.6-14.8) % Plt Count 294 (150-400) X10^3/uL Neut % (Auto) 82.4 H (50-75) % Lymph % (Auto) 11.1 L (25-40) % [place] % (Auto) 5.1 (3-14) % Eos % (Auto) 0.8 L (2-4) % Baso % (Auto) 0.6 (0-2) % Neut # (Auto) 9800 H (0104-6997) /uL Lymph # (Auto) 1300 (4003-5964) /uL [place] # (Auto) 600 (0-900) /uL Eos # (Auto) 100 (0-450) /uL Baso # (Auto) 100 (0-100) /uL PT 12.5 (10.1-12.7) SECONDS INR 1.1 (0.9-1.3) Sodium 144 (137-145) mmol/L Potassium 5.0 (3.4-5.1) mmol/L Chloride 109 H (98-107) mmol/L Carbon Dioxide 24 (22-32) mmol/L BUN 44 H (7-17) mg/dL Creatinine 1.45 H (0.52-1.04) mg/dL Estimated GFR 34.6 L (>60) mL/min BUN/Creatinine Ratio 30.3 H (6-22) Glucose 137 H (80-110) mg/dL Calcium 10.3 H (8.4-10.2) mg/dL Magnesium (1.6-2.3) mg/dL Total Bilirubin 0.5 (0.2-1.3) mg/dL AST 22 (14-36) IU/L ALT 14 (<35) IU/L Alkaline Phosphatase 84 (38-126) U/L Ammonia (9-30) umol/L Total Creatine Kinase 35 (30-135) U/L CK-MB (CK-2) TNP CK-MB (CK-2) Rel Index TNP Troponin I 0.014 (0.01-0.034) ng/mL Total Protein 7.9 (6.3-8.2) g/dL Albumin 4.2 (3.5-5.0) g/dL Globulin 3.7 (1.7-4.1) g/dL Albumin/Globulin Ratio 1.1 (1.0-2.8) Lipase 103 (23-300) U/L Procalcitonin (<0.5) ng/mL TSH (0.47-4.68) uIU/mL Free T4 (0.78-2.19) ng/dL Free T3 (2.77-5.27) pg/mL Urine Color Urine Appearance Urine pH (4.5-8.0) Ur Specific [place] (1.000-1.035) Urine Protein (Negative) Urine Glucose (UA) (Negative) g/dL Urine Ketones (NEGATIVE) Urine Occult Blood (Negative) Urine Nitrate (Negative) Urine Bilirubin (NEGATIVE) Urine Urobilinogen (0.2) E.U./dL Ur Leukocyte Esterase (NEGATIVE) Urine RBC (0-5/HPF) Urine WBC (0-5/HPF) Ur Squamous Epith Cells (0-5/HPF) Ur Renal Epithelial Cell (0-1/HPF) Urine Bacteria (None) Ur Culture Indicated? Salicylates < 1.0 (<20) mg/dL Acetaminophen < 10 L (10-30) ug/mL Ethyl Alcohol < 10 ( - 10) mg/dL COVID-19 PCR (Negative) 08/01/20 08/01/20 08/01/20 Range/Units 20:49 20:49 20:49 WBC (4.5-11.0) X10^3/uL RBC (4.0-5.2) X10^6/uL Hgb (12.0-16.0) g/dL Hct (36-46) % MCV (80-100) fL MCH (26-34) PG MCHC (30-36) % RDW (11.6-14.8) % Plt Count (150-400) X10^3/uL Neut % (Auto) (50-75) % Lymph % (Auto) (25-40) % [place] % (Auto) (3-14) % Eos % (Auto) (2-4) % Baso % (Auto) (0-2) % Neut # (Auto) (4142-8418) /uL Lymph # (Auto) (4019-9351) /uL [place] # (Auto) (0-900) /uL Eos # (Auto) (0-450) /uL Baso # (Auto) (0-100) /uL PT (10.1-12.7) SECONDS INR (0.9-1.3) Sodium (137-145) mmol/L Potassium (3.4-5.1) mmol/L Chloride (98-107) mmol/L Carbon Dioxide (22-32) mmol/L BUN (7-17) mg/dL Creatinine (0.52-1.04) mg/dL Estimated GFR (>60) mL/min BUN/Creatinine Ratio (6-22) Glucose (80-110) mg/dL Calcium (8.4-10.2) mg/dL Magnesium 2.0 (1.6-2.3) mg/dL Total Bilirubin (0.2-1.3) mg/dL AST (14-36) IU/L ALT (<35) IU/L Alkaline Phosphatase (38-126) U/L Ammonia (9-30) umol/L Total Creatine Kinase (30-135) U/L CK-MB (CK-2) CK-MB (CK-2) Rel Index Troponin I (0.01-0.034) ng/mL Total Protein (6.3-8.2) g/dL Albumin (3.5-5.0) g/dL Globulin (1.7-4.1) g/dL Albumin/Globulin Ratio (1.0-2.8) Lipase (23-300) U/L Procalcitonin < 0.05 (<0.5) ng/mL TSH 0.943 (0.47-4.68) uIU/mL Free T4 (0.78-2.19) ng/dL Free T3 2.14 L (2.77-5.27) pg/mL Urine Color Urine Appearance Urine pH (4.5-8.0) Ur Specific [place] (1.000-1.035) Urine Protein (Negative) Urine Glucose (UA) (Negative) g/dL Urine Ketones (NEGATIVE) Urine Occult Blood (Negative) Urine Nitrate (Negative) Urine Bilirubin (NEGATIVE) Urine Urobilinogen (0.2) E.U./dL Ur Leukocyte Esterase (NEGATIVE) Urine RBC (0-5/HPF) Urine WBC (0-5/HPF) Ur Squamous Epith Cells (0-5/HPF) Ur Renal Epithelial Cell (0-1/HPF) Urine Bacteria (None) Ur Culture Indicated? Salicylates (<20) mg/dL Acetaminophen (10-30) ug/mL Ethyl Alcohol ( - 10) mg/dL COVID-19 PCR (Negative) 08/01/20 08/01/20 08/01/20 Range/Units 20:49 21:00 22:25 WBC (4.5-11.0) X10^3/uL RBC (4.0-5.2) X10^6/uL Hgb (12.0-16.0) g/dL Hct (36-46) % MCV (80-100) fL MCH (26-34) PG MCHC (30-36) % RDW (11.6-14.8) % Plt Count (150-400) X10^3/uL Neut % (Auto) (50-75) % Lymph % (Auto) (25-40) % [place] % (Auto) (3-14) % Eos % (Auto) (2-4) % Baso % (Auto) (0-2) % Neut # (Auto) (1212-3236) /uL Lymph # (Auto) (7940-2120) /uL [place] # (Auto) (0-900) /uL Eos # (Auto) (0-450) /uL Baso # (Auto) (0-100) /uL PT (10.1-12.7) SECONDS INR (0.9-1.3) Sodium (137-145) mmol/L Potassium (3.4-5.1) mmol/L Chloride (98-107) mmol/L Carbon Dioxide (22-32) mmol/L BUN (7-17) mg/dL Creatinine (0.52-1.04) mg/dL Estimated GFR (>60) mL/min BUN/Creatinine Ratio (6-22) Glucose (80-110) mg/dL Calcium (8.4-10.2) mg/dL Magnesium (1.6-2.3) mg/dL Total Bilirubin (0.2-1.3) mg/dL AST (14-36) IU/L ALT (<35) IU/L Alkaline Phosphatase (38-126) U/L Ammonia < 9 L (9-30) umol/L Total Creatine Kinase (30-135) U/L CK-MB (CK-2) CK-MB (CK-2) Rel Index Troponin I (0.01-0.034) ng/mL Total Protein (6.3-8.2) g/dL Albumin (3.5-5.0) g/dL Globulin (1.7-4.1) g/dL Albumin/Globulin Ratio (1.0-2.8) Lipase (23-300) U/L Procalcitonin (<0.5) ng/mL TSH (0.47-4.68) uIU/mL Free T4 1.34 (0.78-2.19) ng/dL Free T3 (2.77-5.27) pg/mL Urine Color Yellow Urine Appearance Clear Urine pH 5.0 (4.5-8.0) Ur Specific [place] 1.020 (1.000-1.035) Urine Protein 2+ H (Negative) Urine Glucose (UA) Negative (Negative) g/dL Urine Ketones Negative (NEGATIVE) Urine Occult Blood 1+ H (Negative) Urine Nitrate Negative (Negative) Urine Bilirubin Negative (NEGATIVE) Urine Urobilinogen 0.2 (0.2) E.U./dL Ur Leukocyte Esterase 2+ H (NEGATIVE) Urine RBC 1-5/hpf (0-5/HPF) Urine WBC 30-100/hpf H (0-5/HPF) Ur Squamous Epith Cells 1-5 /hpf (0-5/HPF) Ur Renal Epithelial Cell 1-5/hpf H (0-1/HPF) Urine Bacteria Moderate (10-30) H (None) Ur Culture Indicated? Specimen cultured Salicylates (<20) mg/dL Acetaminophen (10-30) ug/mL Ethyl Alcohol ( - 10) mg/dL COVID-19 PCR (Negative) 08/02/20 Range/Units 00:40 WBC (4.5-11.0) X10^3/uL RBC (4.0-5.2) X10^6/uL Hgb (12.0-16.0) g/dL Hct (36-46) % MCV (80-100) fL MCH (26-34) PG MCHC (30-36) % RDW (11.6-14.8) % Plt Count (150-400) X10^3/uL Neut % (Auto) (50-75) % Lymph % (Auto) (25-40) % [place] % (Auto) (3-14) % Eos % (Auto) (2-4) % Baso % (Auto) (0-2) % Neut # (Auto) (8901-6187) /uL Lymph # (Auto) (5126-7748) /uL [place] # (Auto) (0-900) /uL Eos # (Auto) (0-450) /uL Baso # (Auto) (0-100) /uL PT (10.1-12.7) SECONDS INR (0.9-1.3) Sodium (137-145) mmol/L Potassium (3.4-5.1) mmol/L Chloride (98-107) mmol/L Carbon Dioxide (22-32) mmol/L BUN (7-17) mg/dL Creatinine (0.52-1.04) mg/dL Estimated GFR (>60) mL/min BUN/Creatinine Ratio (6-22) Glucose (80-110) mg/dL Calcium (8.4-10.2) mg/dL Magnesium (1.6-2.3) mg/dL Total Bilirubin (0.2-1.3) mg/dL AST (14-36) IU/L ALT (<35) IU/L Alkaline Phosphatase (38-126) U/L Ammonia (9-30) umol/L Total Creatine Kinase (30-135) U/L CK-MB (CK-2) CK-MB (CK-2) Rel Index Troponin I (0.01-0.034) ng/mL Total Protein (6.3-8.2) g/dL Albumin (3.5-5.0) g/dL Globulin (1.7-4.1) g/dL Albumin/Globulin Ratio (1.0-2.8) Lipase (23-300) U/L Procalcitonin (<0.5) ng/mL TSH (0.47-4.68) uIU/mL Free T4 (0.78-2.19) ng/dL Free T3 (2.77-5.27) pg/mL Urine Color Urine Appearance Urine pH (4.5-8.0) Ur Specific [place] (1.000-1.035) Urine Protein (Negative) Urine Glucose (UA) (Negative) g/dL Urine Ketones (NEGATIVE) Urine Occult Blood (Negative) Urine Nitrate (Negative) Urine Bilirubin (NEGATIVE) Urine Urobilinogen (0.2) E.U./dL Ur Leukocyte Esterase (NEGATIVE) Urine RBC (0-5/HPF) Urine WBC (0-5/HPF) Ur Squamous Epith Cells (0-5/HPF) Ur Renal Epithelial Cell (0-1/HPF) Urine Bacteria (None) Ur Culture Indicated? Salicylates (<20) mg/dL Acetaminophen (10-30) ug/mL Ethyl Alcohol ( - 10) mg/dL COVID-19 PCR Negative (Negative) MDM Narrative Medical decision making narrative: Patient does have a slight leukocytosis and a urinalysis that shows hematuria, pyuria, bacteriuria. Despite not having any urinary symptoms I feel that a urinary tract infection could be causing the patient's weakness. She has no reproducible tenderness with palpation of her bilateral calf muscles. She does have profound lower extremity weakness. Patient essentially unable to lift her bottom up off the bed to help with removing her pants. Patient unable to stand bedside even to transition to the bedside commode. She has no localizing symptoms that would make me concerned for a CVA. I considered other etiologies such as DVT has a cause of her leg pain however her physical exam is not consistent with this. Electrolytes unremarkable. Not hypoglycemic. I feel patient is unsafe to be discharged home given her profound weakness in the fact that she lives at home on her own. I did discuss the case with TAMELA Stone the night hospitalist who will admit the patient for further evaluation. Social work and physical therapy consult placed in the emergency department. She was given a dose of antibiotics in the ER. Discharge Plan Departure Patient Disposition: Admitted as Observation Clinical Impression: Generalized weakness Urinary tract infection Qualifiers: Urinary tract infection type: acute cystitis Hematuria presence: with hematuria Qualified Code(s): N30.01 - Acute cystitis with hematuria Discharge Date/Time: 08/02/20 01:40 Admit Date/Time: 08/02/20 00:47 Admit Provider: Adiel Stone
[2020-08-01 20:55] LABS: INR 1.1 (0.9-1.3); Prothrombin Time 12.5 SECONDS (10.1-12.7)
[2020-08-01 20:56] LABS: Add Manual Diff / Slide Review NO; Basophils Absolute Auto 100 /uL (0-100); Basophils Percent Auto 0.6 % (0-2); Eosinophils Absolute Auto 100 /uL (0-450); Eosinophils Percent Auto 0.8 % (2-4); Hematocrit 38.3 % (36-46); Hemoglobin 12.1 g/dL (12.0-16.0); Lymphocytes Absolute Auto 1300 /uL (1100-4500); Lymphocytes Percent Auto 11.1 % (25-40); Mean Corpuscular HGB Conc 31.6 % (30-36); Mean Corpuscular Hemoglobin 27.3 PG (26-34); Mean Corpuscular Volume 86.4 fL (80-100); Monocytes Absolute Auto 600 /uL (0-900); Monocytes Percent Auto 5.1 % (3-14); Neutrophils Absolute Auto 9800 /uL (1500-7000); Neutrophils Percent Auto 82.4 % (50-75); Platelet Count 294 X10^3/uL (150-400); Red Blood Cell Count 4.44 X10^6/uL (4.0-5.2); Red Cell Distribution Width 15.3 % (11.6-14.8); White Blood Cell Count 11.9 X10^3/uL (4.5-11.0)
[2020-08-01 21:04] LABS: Alanine Aminotransferase 14 IU/L (<35); Albumin 4.2 g/dL (3.5-5.0); Albumin Globulin Ratio 1.1 (1.0-2.8); Alkaline Phosphatase 84 U/L (38-126); Aspartate Aminotransferase 22 IU/L (14-36); BUN Creatinine Ratio 30.3 (6-22); Bilirubin Total 0.5 mg/dL (0.2-1.3); Blood Urea Nitrogen 44 mg/dL (7-17); Calcium 10.3 mg/dL (8.4-10.2); Carbon Dioxide 24 mmol/L (22-32); Chloride 109 mmol/L (98-107); Creatine Kinase 35 U/L (30-135); Estimated Glomerular Filt Rate 34.6 mL/min (>60); Globulin 3.7 g/dL (1.7-4.1); Glucose 137 mg/dL (80-110); HEMOLYSIS < 15 (0-50); Lipase 103 U/L (23-300); Sodium 144 mmol/L (137-145); Total Protein 7.9 g/dL (6.3-8.2)
[2020-08-01 21:14] LABS: Troponin I 0.014 ng/mL (0.01-0.034)
[2020-08-01 21:15] LABS: Acetaminophen < 10 ug/mL (10-30); Ethanol (ETOH) < 10 mg/dL; Salicylate < 1.0 mg/dL (<20)
[2020-08-01] MEDS: SODIUM CHLORIDE 0.9% 1,000 ML 500 ML IV (21:15)
[2020-08-01 21:19] LABS: Ammonia (NH3) < 9 umol/L (9-30)
[2020-08-01 21:28] LABS: Free T3, Triiodothyronine Free 2.14 pg/mL (2.77-5.27)
[2020-08-01 21:42] LABS: Thyroid Stimulating Hormone 0.943 uIU/mL (0.47-4.68)
--- NOTE | 2020-08-01 22:00 | PC.NURSE ---
Pt up to commode with 2 person assist, pt states she feels weak and shaky with pain to back of her legs when she stands. Pt anxious to stand and unsteady on feet. Dr price. Pt states usually walks normally without any assistive devices but was unable to get out of a chair earlier today because she felt too weak.
[2020-08-01 22:33] LABS: Appearance Urine UA CLEAR; Bilirubin Urine UA NEGATIVE (NEGATIVE); Color Urine UA YELLOW; Glucose Urine UA NEGATIVE (Negative); Ketones Urine UA NEGATIVE (NEGATIVE); Leukocyte Esterase Urine UA 2+ (NEGATIVE); Nitrite Urine UA NEGATIVE (Negative); Occult Blood Urine UA 1+ (Negative); Protein Urine UA 2+ (Negative); Urobilinogen Urine UA 0.2 E.U./dL (0.2)
[2020-08-01 22:43] LABS: Bacteria Urine Moderate (10-30); Culture Indicated Urine Specimen Cultured; RBC Urine 1-5/HPF (0-5/HPF); Renal Epithelial Cells Urine 1-5/HPF (0-1/HPF); Squamous Epithelial Cell Urine 1-5 /HPF (0-5/HPF); WBC Urine 30-100/HPF (0-5/HPF)
[2020-08-01] MEDS: NITROFURANTOIN ER 100 MG CAPSULE PO (23:20)
[2020-08-02] VITALS (11 sets, daily range): BP systolic 111–159; BP diastolic 64–92; PULSE 59–94; RESP 13–18; TEMP 36.1–37.3; O2SAT 94–99; BMI 25.3
--- NOTE | 2020-08-02 00:52 | PC.NURSE ---
Pt brother EVERARDO Perry can be reached at [phone] for further information and updates.
[2020-08-02 01:06] LABS: COVID19 -Nasal RAPID Negative (Negative)
--- NOTE | 2020-08-02 01:38 | P.HP_ITS ---
History of Present Illness History of Present Illness Date Patient Seen: 08/02/20 Time Patient Seen: 02:03 Chief complaint: Weakness Narrative: Ms Shyann Munoz is an 84 yo female with a past medical history significant hypertension, hyperlipidemia, hypothyroidism breast and skin cancer presents to the ER for generalized weakness and leg pain. The patient lives alone [facility] and her brother came to visit and found the patient unable to get out a chair, stand or walk. She has generalized weakness and add baseline the patient is ambulatory without use of assistive devices. She states she started having pain in the back side of her left knee approximately 11:00 a.m. today. No history of trauma fall or injury. The pain has been progressive throughout the day. The patient's son called EMS. The patient acknowledges poor memory and recall however she denies complaints of fevers or chills, headaches or dizziness, nasal congestion or sore throat. She denies recent COVID-19 exposures. She denies chest pain or palpitations, shortness of breath cough or wheezing. She denies epigastric or abdominal pain but does report urinary frequency and urgency. She denies constipation states her last bowel movement was 1 day ago and describes it is normal. Upon arrival to the ER the patient has temperature 98.0?, heart rate of 87, blood pressure 136/74, respiratory rate of 24 and oxygen saturation 94% on room air. No imaging was performed in the emergency department. Twelve lead EKG has artifact, sinus rhythm ventricular rate of 79 without ectopy or block, Q-waves in lead 3 and AVF. On laboratory analysis she has white count of 11.9 with a left shift, hemoglobin of 12.1 and hematocrit of 38.3 and platelets of 294. She has a PT of 12.5 and INR 1.1. Electrolytes are within normal limits and has a BUN of 44 and a creatinine 1.45. She has an EGFR of 34.6 and BUN creatinine ratio of 30.3. Her nonfasting glucose is 137. Her liver functions are all within normal limits and has an albumin of 4.2 and ammonia less than 9. She has a total CK of 35, troponin is 0.014 and UDS is negative. Urinalysis positive for protein, blood, leukocyte esterase, wbc's and bacteria. The patient is admitted to the hospital service with urinary tract infection, self-care deficit and inability to return to her home setting with bilateral leg pain left greater than right Patient History Medical History HTN (hypertension) (Acute) Hyperlipidemia (Acute) Hypothyroidism (Acute) Skin cancer (Acute) Surgical History (Updated 08/02/20 @ 02:44 by AFUA Woodall) Breast cancer (Acute) History of bilateral cataract extraction (Acute) History of hysterectomy (Acute) No pertinent past surgical history (Acute) Family & Social History Family History (Updated 08/02/20 @ 02:40 by AFUA Woodall) Father Heart disease Mother Surgical complication Daughter Hypothyroidism Social History: household members none Patient lives alone on [facility] Tobacco & Substance use: Patient quit smoking 20 years ago before which she smoked 1 pack per day for approximately 40 years Comment: Patient denies recreational pharmaceuticals, herbal or cannabis products use. Meds Home Medications and Allergies Home Medications Medication Instructions Recorded Confirmed Type amlodipine [Norvasc] 5 mg PO QDAY #0 05/06/13 08/26/18 History pravastatin [Pravachol] 80 mg PO Q DAY #0 05/06/13 08/26/18 History ciprofloxacin HCl [Cipro] 500 mg PO BID #14 tab 08/26/18 Rx levothyroxine 100 mcg PO DAILY 08/26/18 08/26/18 History levothyroxine 150 mcg PO DAILY #30 cap 08/26/18 Rx losartan 50 mg PO DAILY 08/26/18 08/26/18 History potassium chloride 20 meq PO DAILY #105 ml 08/26/18 Rx ranitidine HCl 1 tab PO DAILY PRN 08/26/18 08/26/18 History Allergies Allergy/AdvReac Type Severity Reaction Status Date / Time Sulfa (Sulfonamide Allergy Intermediate FACIAL Verified 02/22/19 07:25 Antibiotics) SWELLING ginkgo biloba Allergy Mild GI UPSET Verified 02/22/19 07:25 Review of Systems Review of Systems ROS: Yes All systems reviewed with the patient and are negative except as otherwise documented Exam Vital Signs (past 8 hours): - 08/01/20 19:53 08/01/20 20:00 08/01/20 20:30 Temperature 98.0 F Pulse Rate 79 79 88 Respiratory Rate 20 Blood Pressure 136/74 Pulse Oximetry 98 97 98 08/01/20 21:00 08/01/20 21:30 08/01/20 22:00 Temperature Pulse Rate 82 78 76 Respiratory Rate 16 Blood Pressure Pulse Oximetry 98 97 98 08/01/20 22:26 08/01/20 22:30 08/01/20 23:00 Temperature Pulse Rate 73 79 72 Respiratory Rate 18 16 Blood Pressure 151/79 H 157/71 H 157/79 H Pulse Oximetry 99 97 96 08/01/20 23:30 08/01/20 23:31 Temperature Pulse Rate 83 74 Respiratory Rate Blood Pressure 148/67 H Pulse Oximetry 98 98 Oxygen Delivery Method Room Air Narrative Exam Narrative: GENERAL APPEARANCE: well developed, well nourished, in no acute distress. HEENT: Atraumatic, PERRLA, conjunctiva clear, EOMs intact without nystagmus, no sinus tenderness to percussion, no rhinorrhea, mucous membranes are moist and pink without lesions or exudate. NECK/THYROID: neck supple, no neck pain, no step-offs no JVD,no thyromegaly, trachea midline. LYMPH NODES: no cervical or supraclavicular lymphadenopathy. SKIN: [place], warm and dry, no visible rashes or ecchymosis HEART: regular rate and rhythm, S1-S2, no murmur, no rubs or gallops, brisk capillary refill, no edema LUNGS: clear to auscultation bilaterally, no coarseness crackles or wheezing, no cough present CHEST: Symmetrical movement, no accessory muscle use, good tidal volume. ABDOMEN: Soft, no distention, no abdominal tenderness, no organomegaly, no flank tenderness, active bowel tones. BACK: Normal curvature, mild tenderness without ecchymosis or contusion midthoracic spine, no palpable muscle spasms EXTREMITIES: Pain on palpation left popliteal fossa and left lateral knee, no obvious effusion, ecchymosis or redness, moves all extremities, strength 4/5 BUE, 3 to 4/5 RLE, pain with movement left leg NEUROLOGIC: AAO x person place date and month but not date, 4, no focal neurologic deficits, cranial nerves II-XII grossly intact, sensation intact to light touch, hearing grossly normal to speech. PSYCH: cooperative, appropriate with stable behavior Objective Labs Result Diagrams: 08/01/20 20:49 08/01/20 20:49 Labs: Laboratory Results - last 24 hr 08/01/20 08/01/20 08/01/20 20:49 20:49 20:49 WBC 11.9 H RBC 4.44 Hgb 12.1 Hct 38.3 MCV 86.4 MCH 27.3 MCHC 31.6 RDW 15.3 H Plt Count 294 Neut % (Auto) 82.4 H Lymph % (Auto) 11.1 L [place] % (Auto) 5.1 Eos % (Auto) 0.8 L Baso % (Auto) 0.6 Neut # (Auto) 9800 H Lymph # (Auto) 1300 [place] # (Auto) 600 Eos # (Auto) 100 Baso # (Auto) 100 PT 12.5 INR 1.1 Sodium 144 Potassium 5.0 Chloride 109 H Carbon Dioxide 24 BUN 44 H Creatinine 1.45 H Estimated GFR 34.6 L BUN/Creatinine Ratio 30.3 H Glucose 137 H Calcium 10.3 H Magnesium Total Bilirubin 0.5 AST 22 ALT 14 Alkaline Phosphatase 84 Ammonia Total Creatine Kinase 35 CK-MB (CK-2) TNP CK-MB (CK-2) Rel Index TNP Troponin I 0.014 Total Protein 7.9 Albumin 4.2 Globulin 3.7 Albumin/Globulin Ratio 1.1 Lipase 103 TSH Free T3 Urine Color Urine Appearance Urine pH Ur Specific [place] Urine Protein Urine Glucose (UA) Urine Ketones Urine Occult Blood Urine Nitrate Urine Bilirubin Urine Urobilinogen Ur Leukocyte Esterase Urine RBC Urine WBC Ur Squamous Epith Cells Ur Renal Epithelial Cell Urine Bacteria Ur Culture Indicated? Salicylates < 1.0 Acetaminophen < 10 L Ethyl Alcohol < 10 COVID-19 PCR 08/01/20 08/01/20 08/01/20 20:49 20:49 21:00 WBC RBC Hgb Hct MCV MCH MCHC RDW Plt Count Neut % (Auto) Lymph % (Auto) [place] % (Auto) Eos % (Auto) Baso % (Auto) Neut # (Auto) Lymph # (Auto) [place] # (Auto) Eos # (Auto) Baso # (Auto) PT INR Sodium Potassium Chloride Carbon Dioxide BUN Creatinine Estimated GFR BUN/Creatinine Ratio Glucose Calcium Magnesium 2.0 Total Bilirubin AST ALT Alkaline Phosphatase Ammonia < 9 L Total Creatine Kinase CK-MB (CK-2) CK-MB (CK-2) Rel Index Troponin I Total Protein Albumin Globulin Albumin/Globulin Ratio Lipase TSH 0.943 Free T3 2.14 L Urine Color Urine Appearance Urine pH Ur Specific [place] Urine Protein Urine Glucose (UA) Urine Ketones Urine Occult Blood Urine Nitrate Urine Bilirubin Urine Urobilinogen Ur Leukocyte Esterase Urine RBC Urine WBC Ur Squamous Epith Cells Ur Renal Epithelial Cell Urine Bacteria Ur Culture Indicated? Salicylates Acetaminophen Ethyl Alcohol COVID-19 PCR 08/01/20 08/02/20 22:25 00:40 WBC RBC Hgb Hct MCV MCH MCHC RDW Plt Count Neut % (Auto) Lymph % (Auto) [place] % (Auto) Eos % (Auto) Baso % (Auto) Neut # (Auto) Lymph # (Auto) [place] # (Auto) Eos # (Auto) Baso # (Auto) PT INR Sodium Potassium Chloride Carbon Dioxide BUN Creatinine Estimated GFR BUN/Creatinine Ratio Glucose Calcium Magnesium Total Bilirubin AST ALT Alkaline Phosphatase Ammonia Total Creatine Kinase CK-MB (CK-2) CK-MB (CK-2) Rel Index Troponin I Total Protein Albumin Globulin Albumin/Globulin Ratio Lipase TSH Free T3 Urine Color Yellow Urine Appearance Clear Urine pH 5.0 Ur Specific [place] 1.020 Urine Protein 2+ H Urine Glucose (UA) Negative Urine Ketones Negative Urine Occult Blood 1+ H Urine Nitrate Negative Urine Bilirubin Negative Urine Urobilinogen 0.2 Ur Leukocyte Esterase 2+ H Urine RBC 1-5/hpf Urine WBC 30-100/hpf H Ur Squamous Epith Cells 1-5 /hpf Ur Renal Epithelial Cell 1-5/hpf H Urine Bacteria Moderate (10-30) H Ur Culture Indicated? Specimen cultured Salicylates Acetaminophen Ethyl Alcohol COVID-19 PCR Negative Assessment & Plan Assessment & Plan narrative: This is an 84-year-old female patient who presents to the hospital with complaints of generalized weakness, urinary tract infection and bilateral lower extremity pain left greater than right without history of trauma or injury. 1. Generalized weakness, present on admission, active. -patient with onset of acute weakness onset 11:00 a.m. yesterday before which she is ambulatory at baseline without assistive devices. -patient was too weak to rise up from chair stand or walk with self-care deficits. -weaknesses believes multifactorial related to dehydration and urinary tract infection discussed below. 2. Bilateral leg pain left greater than right, acute, present on admission, active. -patient reports acute pain left knee without reports of trauma or injury, pain on palpation left popliteal fossa and left lateral knee, generalized pain with range of motion right knee. -no evidence of ecchymosis or swelling no calf tenderness, good [place] plantar flexion, able straight raise right leg but not the left. No low back pain does report midthoracic pain on palpation. -ordered x-rays left knee three view. -requested PT and OT to consult, evaluate and treat. -be initiated orthopedic consult pending results of imaging. 3. Lower urinary tract infection, acute, present on admission, active. -prior history of urinary tract infection, prior culture results reveals variable sensitivity E coli. -patient received nitrofurantoin by mouth in the emergency department, this will be discontinued due to patient's decreased renal function. -ordered ceftriaxone 1 g IV daily. 4. Dehydration, acute, present on admission, active. -elevated sodium 144 with chloride 109, potassium of 5.0 in the setting of chronic kidney disease. BUN creatinine ratio is 30.3 -will gently rehydrate the patient with 0.45% saline at 75 cc per hour. -reassess electrolytes on morning labs. 5. Chronic kidney disease stage IIIB, present on admission, stable. -creatinine on admission is a 1.45 which is an improvement over her previous measure creatinine which is 1.54 on 02/22/2020. EGFR is 34.6, calculated creatinine clearance is 29.7. -will gently rehydrate the patient with 0.55% saline at 75 cc/hour for dehydration as above. -will reassess renal function on morning labs. -will avoid renal toxic agents. -and renal dose medications as indicated. 6. Essential hypertension, chronic, stable -patient takes losartan 50 mg home which we discontinued due to impaired renal function. -will increase home medication of amlodipine to 10 mg daily. 7. Dyslipidemia, chronic, stable. -Will continue home regimen of rosuvastatin 20 mg daily 8. Hypothyroidism, chronic, stable. -patient with a TSH of 0.943 on admission labs and free T3 is 2.14. -will obtain free T4 -continue home regimen of levothyroxine 112 mcg daily. 9. History of breast cancer, stable. -patient had 2 occurrences of left breast cancer, last occurring in 2009. She has undergone 2 lumpectomies and reports no chemo or radiation therapy. -no evidence of recurrence. VTE prophylaxis: Bilateral SCDs, enoxaparin IV fluid: 0.45% saline at 75 cc/hour Diet: Heart healthy Code status: Full code, patient designates her brother who has POA to be her surrogate decision maker. The patient is admitted to the hospital due to self-care deficits and inability return to home setting and for treatment of a UTI. The patient is admitted as observation with expected length of stay to be less than 2 midnights. COVID-19 COVID-19 status: Negative Result date/Date tested (Pos, Neg/Pending): 08/02/20
[2020-08-02 02:19] LABS: Procalcitonin < 0.05 ng/mL (<0.5)
[2020-08-02] MEDS: SODIUM CHLORIDE 0.45% 1,000 ML 75 ML IV ×2 (02:21→16:52)
[2020-08-02] MEDS: CEFTRIAXONE 1 GM/50 ML FROZ.PIGGY IV (02:21)
--- NOTE | 2020-08-02 02:21 | DI.RAD.S_ITS ---
PROCEDURE: XR KNEE LT 1TO2V INDICATIONS: Popliteal and lateral knee pain TECHNIQUE: 2 views of the knee were acquired. COMPARISON: None. FINDINGS: Bones: No fractures or dislocations. No suspicious bony lesions. Mild narrowing of the joint interspace at the medial compartment, likely due to osteoarthritis. Soft tissues: No joint effusion. No suspicious soft tissue calcifications. 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 No trauma found. Dictated by: Chase Menjivar M.D. on 08/02/2020 at 9:04 Approved by: Chase Menjivar M.D. on 08/02/2020 at 9:04
--- NOTE | 2020-08-02 03:30 | PC.NURSE ---
Lott placed at 0325. Patient has no home meds with her as I previously thought.
[2020-08-02 03:59] LABS: Free T4, Direct Thyroxine 1.34 ng/dL (0.78-2.19)
[2020-08-02] MEDS: TRAMADOL 50 MG TABLET PO ×2 (05:46→22:08)
[2020-08-02] MEDS: CALCIUM CARBONATE 500 MG TAB 1000 MG PO (05:46)
[2020-08-02 06:10] LABS: Add Manual Diff / Slide Review NO; Basophils Absolute Auto 100 /uL (0-100); Basophils Percent Auto 0.6 % (0-2); Eosinophils Absolute Auto 100 /uL (0-450); Eosinophils Percent Auto 0.9 % (2-4); Hematocrit 34.2 % (36-46); Hemoglobin 11.1 g/dL (12.0-16.0); Lymphocytes Absolute Auto 1100 /uL (1100-4500); Lymphocytes Percent Auto 11.9 % (25-40); Mean Corpuscular HGB Conc 32.4 % (30-36); Mean Corpuscular Hemoglobin 27.9 PG (26-34); Mean Corpuscular Volume 85.9 fL (80-100); Monocytes Absolute Auto 500 /uL (0-900); Monocytes Percent Auto 5.7 % (3-14); Neutrophils Absolute Auto 7800 /uL (1500-7000); Neutrophils Percent Auto 80.9 % (50-75); Platelet Count 243 X10^3/uL (150-400); Red Blood Cell Count 3.98 X10^6/uL (4.0-5.2); Red Cell Distribution Width 15.4 % (11.6-14.8); White Blood Cell Count 9.7 X10^3/uL (4.5-11.0)
[2020-08-02 06:29] LABS: BUN Creatinine Ratio 29.8 (6-22); Blood Urea Nitrogen 37 mg/dL (7-17); Calcium 9.1 mg/dL (8.4-10.2); Carbon Dioxide 25 mmol/L (22-32); Chloride 111 mmol/L (98-107); Estimated Glomerular Filt Rate 41.4 mL/min (>60); Glucose 99 mg/dL (80-110); HEMOLYSIS < 15 (0-50); Potassium 4.7 mmol/L (3.4-5.1); Sodium 140 mmol/L (137-145)
[2020-08-02 06:34] LABS: Hemoglobin A1C% w Est Avg Glu 6.1 % (4.0-6.0)
[2020-08-02 06:44] LABS: Procalcitonin < 0.05 ng/mL (<0.5)
--- NOTE | 2020-08-02 09:35 | PT.IIE ---
Surgical History (Last Updated 08/02/20 @ 02:44 by AFUA Woodall) Breast cancer (Acute) History of bilateral cataract extraction (Acute) History of hysterectomy (Acute) No pertinent past surgical history (Acute) Medical History (Last Reviewed 08/02/20 @ 05:32 by Miguel Banuelos DO) HTN (hypertension) (Acute) Hyperlipidemia (Acute) Hypothyroidism (Acute) Skin cancer (Acute) Physical Therapy Inpatient Evaluation/Re-Eval M1 PT/OT-IP Prior Functional Status Start: 08/02/20 11:31 Freq: NEEDED Status: Active Protocol: Document 08/02/20 09:35 AB (Rec: 08/02/20 11:43 AB [email or web address]) Medical Review Prior Functional Status Medical History Reviewed Yes Communication able to make needs known Mobility and Gait pt stated that she is independent with all mobilities and ambulation wtihout AD Social History Household Members none Living Arrangements House Number of Floors (Floors) Two Floors Number of Stairs To Enter/Railing? pt stays on main level of the house has 2 steps with L rail ascending to enter Home Environment Standard Height Toilet,Tub/ Shower Additional Social History Comment pt stated that she does not take a shower and only sponge bathes; stated that she sits on a stool and sponge off by the sink M2 PT-IP Current Condition Start: 08/02/20 11:31 Freq: NEEDED Status: Active Protocol: Document 08/02/20 09:35 AB (Rec: 08/02/20 11:43 AB [email or web address]) Physical Therapy Current Condition Current Condition Evaluation Date 08/02/20 Treatment Diagnosis UTI; generalized weakness Onset Date 08/02/20 Precautions Other Precautions falls M3 PT-IP Subjective Start: 08/02/20 11:31 Freq: NEEDED Status: Active Protocol: Document 08/02/20 09:35 AB (Rec: 08/02/20 11:43 AB [id number]) Subjective Physical Therapy Visit Type Type Initial Evaluation Visit Start Time 09:35 Visit Stop Time 10:20 Total Visit Minutes 45 Number of LIGHT RAIL SIGNAL TECHNICIAN Visits 0 Physical Therapy Visit Comments Patient Comments pt initially does not want to do PT but agreed after education Therapy Pain Assessment Pain When Pain Assessed At Rest Location Bilateral Leg Scale Used pain scale not stated Pain Management Techniques Distraction,Modification of Treatment,Re-positioning, Timing of Activity with Medications M4 PT-IP Mobility and Gait Start: 08/02/20 11:31 Freq: NEEDED Status: Active Protocol: Document 08/02/20 09:35 AB (Rec: 08/02/20 11:43 AB [email or web address]) PT-Bed Mobility Assessment Supine to Sit Supine to Sit Maximum Assistance,1 Person Assistance,Head of Bed Elevated,Bedrails Sit to Supine Sit to Supine Maximum Assistance,1 Person Assistance Scooting Scooting to Edge of Bed Maximum Assistance PT-Transfer Assessment Sit to and From Stand Sit to and from Stand Maximum Assistance,1 Person Assistance,Use of Upper Extremities Equipment Transfer Assistive Device Gait Belt,Front Wheeled Walker Orthotic/Prosthetic Devices or Brace: No Comments Mobility Comments pt completed supine to sit max A and max cues. pt was able to sit on EOB min A. completed sit to stand max A and max cues and ambulated ~ 6 ft using FWW mod to max A and cues. pt requested to go back to bed. completed sit to supine max A and max cues. max A for positioned in bed. call light and table placed within reach. Gait Assessment Gait Gait Assistance Required: Moderate Assistance,Maximum Assistance,1 Person Assist Distance (Feet) 6 Able to Maintain Weight Bearing Status No During Gait Assistive Devices Assistive Device Gait Belt,Front Wheeled Walker Orthotic/Prosthetic Devices or Brace: No Gait Deviations General Gait Pattern Decreased Stride Length, Decreased Feet Clearance,Step- to Gait Factors Limiting Gait Function Factors Limiting Gait Function Decreased Activity Tolerance, Decreased Strength,Pain,Poor Balance,Poor Safety Awareness PT-Balance Assessment Sitting Balance and Reactions Static Sitting Balance Ability Fair Dynamic Sitting Balance Ability Fair Standing Balance and Reactions Static Standing Balance Ability Poor Dynamic Standing Balance Ability Poor Device Used FWW M5 PT-IP Objective Assessments Start: 08/02/20 11:31 Freq: NEEDED Status: Active Protocol: Document 08/02/20 09:35 AB (Rec: 08/02/20 11:43 AB [email or web address]) Orientation Orientation/Cognition Level of Alertness Alert Orientation Name Safety Awareness Decreased Safety Awareness Gross Range of Motion Lower Extremity ROM Assessment Within Functional Limits Strength Lower Extremity Strength Assessment Bilaterally Impaired Comments Strength Comments LLE: 4-/5 RLE 3+/5 Coordination Assessment Gross Coordination Gross Coordination WNL Muscle Tone Muscle Tone WNL Yes M6 PT-IP Treatment Start: 08/02/20 11:31 Freq: NEEDED Status: Active Protocol: Document 08/02/20 09:35 AB (Rec: 08/02/20 11:43 AB [id number]) Physical Therapy Treatment Education Education Provided Safety M7 PT-IP Assessment and Plan Start: 08/02/20 11:31 Freq: NEEDED Status: Active Protocol: Document 08/02/20 09:35 AB (Rec: 08/02/20 11:43 AB [id number]) PT Summary Assessment and Plan Potential Rehabilitation Potential Good Status of Condition at Evaluation Evolving Summary Impairments Pain,ROM,Strength,Balance, Sensation,Cognition,Bed Mobility,Transfers,Gait, Activity Tolerance Assessment Summary Pt requiring max A with mobility and unable to tolerate much activity. continues to c/o bilateral LE pain affecting mobility. Pt's brother in room and stated that pt is not safe to be by herself at home. Pt at this time will need SNF rehab to improve strength and mobility independence. Goals Bed Mobility Goal Independent Transfer Goal Independent,Front Wheeled Walker Gait Goal Independent,Front Wheel Walker Gait Distance 100 Other Goals up/down 2 steps L rail ascending SBA Days to Meet Goals 10 Frequency of Treatment Frequency Of Treatment Once a Day Treatment Plan Physical Therapy Treatment Plan Bed Mobility Training,Transfer Training,Gait Training, Therapeutic Exercise,Balance Retraining,Discharge Planning, Hot or Cold Pack,Neuromuscular Re-ed,Coordination Retraining Recommendations To Nursing Amount of Assist Needed 1 Person Assist Discharge Recommendations PT Discharge Recommendations SNF Rehab Equipment Needed for Home Before FWW if pt goes home and not Discharge safe without AD Transportation Needs at Discharge Wheelchair/Cabulance
[2020-08-02] MEDS: ACETAMINOPHEN 325 MG TABLET 650 MG PO (10:11)
[2020-08-02] MEDS: ENOXAPARIN 30 MG/0.3 ML SYRINGE SUBCUT (10:11)
--- NOTE | 2020-08-02 13:46 | OT.IPNOTE ---
Approached pt for OT eval. Pt refused and states wanting to rest . Therefore to attempt OT eval tomorrow.
--- NOTE | 2020-08-02 14:07 | CM.IDA ---
Initial DCP Assessment Note: Patient is an 84 yo female, resident of [facility]. Patient presents w/severe dehydration, generalized weakness and found to have UTI PCP: Lucrecia Morgan Payer: [facility] Reviewed chart. Met w/patient and her brother Tim this morning, introduced role. Patient asks that brother stay for the conversation. Patient A+O throughout conversation, some short term memory loss noted, patient admits to feeling lethargic today. Patient has been living alone in her [facility] residence for 13 years, her brother Tim has lived on [facility] much longer and lives down the street. Patient has 4 adult children that are living in [place] and [place], her oldest dtr is driving here from [place], [place] today. Patient hopes to remain in her home for as long as possible. She feels it has been going well. Brother very respectful of patient throughout the conversation , he does interrupt to add his concern, that he does not feel patient can manage alone for much longer, and he cannot physically assist patient at this time. Patient states she is agreeable to some type of usp facility placement, but unsure whether that would be in [place] state or [place], closer to her children. Discussed DCP options and encouraged patient/family to have a plan by tomorrow, patient is observation and will likely be discharged. Therapy team recommending SNF stay before return home. Patient/family agreeable to referral to [facility], patient has AARP MCR so [facility] can be contacted to request SNF auth. B/u plan will likely be home w/family assist and [facility] (patient agreeable to this as b/u) possibly in home cgs (brother states he has tried this?) . Provided Senior Resource Guide and suggested another bedside visit tomorrow from this DIRECTOR OF PUPIL PERSONNEL PROGRAM to review DCP again and continue discussion about usp care options w/patient and her family. Placed call to April at [facility], gave referral, April can accept patient and will start auth request through [facility] SHIMON Cason Discharge Planning/Care Management CM Discharge Assessment Start: 08/02/20 13:51 Freq: Status: Active Protocol: Document 08/02/20 13:52 J CARLOS (Rec: 08/02/20 14:07 J CARLOS [id number]) Discharge Planning Assessment Assigned Business Developer Amy Kanwal, DIRECTOR OF PUPIL PERSONNEL PROGRAM DPOA/Assigned Designee Name Tim Munoz brother Contact Information [phone] Advance Directives? Yes: durable power of employment attorney Advance Directives on File No History Provided By Patient,Family Member Prior Living Arrangements House Household Members none Willing to Return to Facility? Yes Independent with ADL's No Is patient alert and oriented? Yes: Mild dementia (?) Needs Assistance With Bathing,Grooming,Meal Prep, Managing Medications,Home Chores / Shopping Comment Needs additional assist at home Patient/Family Preference [facility] Facility Barriers to Discharge Yes Discharge Plan [facility] Facility Transportation Arrangement Likely w/c Referrals Initiated Correction Medicare Choice List Provided Yes SNF/HH Preference [facility] Has Agency SNF been contacted Yes Comment Pending auth through [facility] ([facility])
--- NOTE | 2020-08-02 16:18 | PM.PN.1 ---
Subjective Subjective Date Patient Seen: 08/02/20 Interval history: Brief progress note: Patient seen and examined. Physical exam unchanged. 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 Continue PT and OT. Agree with admitting providers assessment and plan. Exam Vital Signs (past 8 hours): - 08/02/20 12:54 08/02/20 15:30 Temperature 98.3 F 99.2 F Pulse Rate 70 77 Respiratory Rate 15 16 Blood Pressure 111/64 116/76 Pulse Oximetry 95 97 Oxygen Delivery Method Room Air Oxygen Flow Rate 0 Objective Labs Result Diagrams: 08/02/20 05:40 08/02/20 05:40 Labs: Laboratory Results - last 24 hr 08/01/20 08/01/20 08/01/20 20:49 20:49 20:49 WBC 11.9 H RBC 4.44 Hgb 12.1 Hct 38.3 MCV 86.4 MCH 27.3 MCHC 31.6 RDW 15.3 H Plt Count 294 Neut % (Auto) 82.4 H Lymph % (Auto) 11.1 L [place] % (Auto) 5.1 Eos % (Auto) 0.8 L Baso % (Auto) 0.6 Neut # (Auto) 9800 H Lymph # (Auto) 1300 [place] # (Auto) 600 Eos # (Auto) 100 Baso # (Auto) 100 PT 12.5 INR 1.1 Sodium 144 Potassium 5.0 Chloride 109 H Carbon Dioxide 24 BUN 44 H Creatinine 1.45 H Estimated GFR 34.6 L BUN/Creatinine Ratio 30.3 H Glucose 137 H Hemoglobin A1c Calcium 10.3 H Magnesium Total Bilirubin 0.5 AST 22 ALT 14 Alkaline Phosphatase 84 Ammonia Total Creatine Kinase 35 CK-MB (CK-2) TNP CK-MB (CK-2) Rel Index TNP Troponin I 0.014 Total Protein 7.9 Albumin 4.2 Globulin 3.7 Albumin/Globulin Ratio 1.1 Lipase 103 Procalcitonin TSH Free T4 Free T3 Urine Color Urine Appearance Urine pH Ur Specific [place] Urine Protein Urine Glucose (UA) Urine Ketones Urine Occult Blood Urine Nitrate Urine Bilirubin Urine Urobilinogen Ur Leukocyte Esterase Urine RBC Urine WBC Ur Squamous Epith Cells Ur Renal Epithelial Cell Urine Bacteria Ur Culture Indicated? Salicylates < 1.0 Acetaminophen < 10 L Ethyl Alcohol < 10 COVID-19 PCR 09/08/01/20 08/01/20 20:49 20:49 20:49 WBC RBC Hgb Hct MCV MCH MCHC RDW Plt Count Neut % (Auto) Lymph % (Auto) [place] % (Auto) Eos % (Auto) Baso % (Auto) Neut # (Auto) Lymph # (Auto) [place] # (Auto) Eos # (Auto) Baso # (Auto) PT INR Sodium Potassium Chloride Carbon Dioxide BUN Creatinine Estimated GFR BUN/Creatinine Ratio Glucose Hemoglobin A1c Calcium Magnesium 2.0 Total Bilirubin AST ALT Alkaline Phosphatase Ammonia Total Creatine Kinase CK-MB (CK-2) CK-MB (CK-2) Rel Index Troponin I Total Protein Albumin Globulin Albumin/Globulin Ratio Lipase Procalcitonin < 0.05 TSH 0.943 Free T4 Free T3 2.14 L Urine Color Urine Appearance Urine pH Ur Specific [place] Urine Protein Urine Glucose (UA) Urine Ketones Urine Occult Blood Urine Nitrate Urine Bilirubin Urine Urobilinogen Ur Leukocyte Esterase Urine RBC Urine WBC Ur Squamous Epith Cells Ur Renal Epithelial Cell Urine Bacteria Ur Culture Indicated? Salicylates Acetaminophen Ethyl Alcohol COVID-19 PCR 08/01/20 08/01/20 08/01/20 20:49 21:00 22:25 WBC RBC Hgb Hct MCV MCH MCHC RDW Plt Count Neut % (Auto) Lymph % (Auto) [place] % (Auto) Eos % (Auto) Baso % (Auto) Neut # (Auto) Lymph # (Auto) [place] # (Auto) Eos # (Auto) Baso # (Auto) PT INR Sodium Potassium Chloride Carbon Dioxide BUN Creatinine Estimated GFR BUN/Creatinine Ratio Glucose Hemoglobin A1c Calcium Magnesium Total Bilirubin AST ALT Alkaline Phosphatase Ammonia < 9 L Total Creatine Kinase CK-MB (CK-2) CK-MB (CK-2) Rel Index Troponin I Total Protein Albumin Globulin Albumin/Globulin Ratio Lipase Procalcitonin TSH Free T4 1.34 Free T3 Urine Color Yellow Urine Appearance Clear Urine pH 5.0 Ur Specific [place] 1.020 Urine Protein 2+ H Urine Glucose (UA) Negative Urine Ketones Negative Urine Occult Blood 1+ H Urine Nitrate Negative Urine Bilirubin Negative Urine Urobilinogen 0.2 Ur Leukocyte Esterase 2+ H Urine RBC 1-5/hpf Urine WBC 30-100/hpf H Ur Squamous Epith Cells 1-5 /hpf Ur Renal Epithelial Cell 1-5/hpf H Urine Bacteria Moderate (10-30) H Ur Culture Indicated? Specimen cultured Salicylates Acetaminophen Ethyl Alcohol COVID-19 PCR 08/02/20 08/02/20 08/02/20 00:40 05:40 05:40 WBC 9.7 RBC 3.98 L Hgb 11.1 L Hct 34.2 L MCV 85.9 MCH 27.9 MCHC 32.4 RDW 15.4 H Plt Count 243 Neut % (Auto) 80.9 H Lymph % (Auto) 11.9 L [place] % (Auto) 5.7 Eos % (Auto) 0.9 L Baso % (Auto) 0.6 Neut # (Auto) 7800 H Lymph # (Auto) 1100 [place] # (Auto) 500 Eos # (Auto) 100 Baso # (Auto) 100 PT INR Sodium 140 Potassium 4.7 Chloride 111 H Carbon Dioxide 25 BUN 37 H Creatinine 1.24 H Estimated GFR 41.4 L BUN/Creatinine Ratio 29.8 H Glucose 99 Hemoglobin A1c Calcium 9.1 Magnesium Total Bilirubin AST ALT Alkaline Phosphatase Ammonia Total Creatine Kinase CK-MB (CK-2) CK-MB (CK-2) Rel Index Troponin I Total Protein Albumin Globulin Albumin/Globulin Ratio Lipase Procalcitonin TSH Free T4 Free T3 Urine Color Urine Appearance Urine pH Ur Specific [place] Urine Protein Urine Glucose (UA) Urine Ketones Urine Occult Blood Urine Nitrate Urine Bilirubin Urine Urobilinogen Ur Leukocyte Esterase Urine RBC Urine WBC Ur Squamous Epith Cells Ur Renal Epithelial Cell Urine Bacteria Ur Culture Indicated? Salicylates Acetaminophen Ethyl Alcohol COVID-19 PCR Negative 08/02/20 08/02/20 05:40 05:40 WBC RBC Hgb Hct MCV MCH MCHC RDW Plt Count Neut % (Auto) Lymph % (Auto) [place] % (Auto) Eos % (Auto) Baso % (Auto) Neut # (Auto) Lymph # (Auto) [place] # (Auto) Eos # (Auto) Baso # (Auto) PT INR Sodium Potassium Chloride Carbon Dioxide BUN Creatinine Estimated GFR BUN/Creatinine Ratio Glucose Hemoglobin A1c 6.1 H Calcium Magnesium Total Bilirubin AST ALT Alkaline Phosphatase Ammonia Total Creatine Kinase CK-MB (CK-2) CK-MB (CK-2) Rel Index Troponin I Total Protein Albumin Globulin Albumin/Globulin Ratio Lipase Procalcitonin < 0.05 TSH Free T4 Free T3 Urine Color Urine Appearance Urine pH Ur Specific [place] Urine Protein Urine Glucose (UA) Urine Ketones Urine Occult Blood Urine Nitrate Urine Bilirubin Urine Urobilinogen Ur Leukocyte Esterase Urine RBC Urine WBC Ur Squamous Epith Cells Ur Renal Epithelial Cell Urine Bacteria Ur Culture Indicated? Salicylates Acetaminophen Ethyl Alcohol COVID-19 PCR Quality VTE Deep Vein Thrombosis/Pulmonary Embolism Present on Admission: Yes
[2020-08-02] MEDS: CEFTRIAXONE 2 GM/50 ML FROZ.PIGGY IV (20:49)
[2020-08-03] VITALS (13 sets, daily range): BP systolic 107–137; BP diastolic 54–82; PULSE 67–88; RESP 14–18; TEMP 35.7–36.2; O2SAT 92–97
[2020-08-03] MEDS: ACETAMINOPHEN 325 MG TABLET 650 MG PO ×2 (01:24→09:32)
--- NOTE | 2020-08-03 03:10 | PC.NURSE ---
Addendum entered by Mandi Gama R.N. 08/03/20 05:51: Pt weak w/transfers to [facility]. IVF continue as per orders. Med w/tramadol for discomfort w/ relief. Lott cath patent clear, yellow urine. Call light w/in reach, bed alarm on for pt safety. Continue w/plan of care. Original Note: Pt resting @ intervals Lungs clear/shallow, SpO2 95% RA States legs are very weak when transfering to [facility]. Med @ 0125 w/tylenol for pain. Call light w/in reach, bed alarm on for pt safety.
[2020-08-03] MEDS: TRAMADOL 50 MG TABLET PO ×4 (05:12→22:38)
[2020-08-03 06:15] LABS: Add Manual Diff / Slide Review NO; Basophils Absolute Auto 100 /uL (0-100); Basophils Percent Auto 0.8 % (0-2); Eosinophils Absolute Auto 300 /uL (0-450); Eosinophils Percent Auto 2.3 % (2-4); Hematocrit 30.9 % (36-46); Lymphocytes Absolute Auto 1300 /uL (1100-4500); Lymphocytes Percent Auto 11.4 % (25-40); Mean Corpuscular HGB Conc 32.5 % (30-36); Mean Corpuscular Hemoglobin 27.8 PG (26-34); Mean Corpuscular Volume 85.5 fL (80-100); Monocytes Absolute Auto 700 /uL (0-900); Monocytes Percent Auto 6.4 % (3-14); Neutrophils Absolute Auto 9000 /uL (1500-7000); Neutrophils Percent Auto 79.1 % (50-75); Platelet Count 218 X10^3/uL (150-400); Red Blood Cell Count 3.61 X10^6/uL (4.0-5.2); Red Cell Distribution Width 15.3 % (11.6-14.8); White Blood Cell Count 11.3 X10^3/uL (4.5-11.0)
[2020-08-03 06:20] LABS: BUN Creatinine Ratio 21.6 (6-22); Blood Urea Nitrogen 25 mg/dL (7-17); Calcium 8.6 mg/dL (8.4-10.2); Carbon Dioxide 22 mmol/L (22-32); Chloride 111 mmol/L (98-107); Estimated Glomerular Filt Rate 44.7 mL/min (>60); Glucose 94 mg/dL (80-110); HEMOLYSIS < 15 (0-50); Magnesium 1.8 mg/dL (1.6-2.3); Potassium 4.4 mmol/L (3.4-5.1); Sodium 138 mmol/L (137-145)
[2020-08-03 06:32] LABS: Procalcitonin < 0.05 ng/mL (<0.5)
--- NOTE | 2020-08-03 09:05 | PM.PN.1 ---
Subjective Subjective Date Patient Seen: 08/03/20 Interval history: Barb Munoz is an 84-year-old female with a past medical history significant for hypertension, hyperlipidemia, hypothyroidism, breast and skin cancer who presented to the ED for generalized weakness and leg pain. The patient is resting in bed comfortably. She reports multiple joint pain that was not well controlled early this morning but that has now resolved with pain medications. She reports her right shoulder, left posterior knee and hips were painful. She continues to work with PT and OT and her generalized weakness is improving with therapy and treatment of UTI. Her brother Tim and daughter Dianelys are present at bedside and are concerned for the patient to return to her home environment because they believe she needs more help taking care of herself. Her brother is very concerned regarding her fluid intake and risk of dehydration. The patient appears well groomed and believes she is taking adequate care of herself. [employer] is looking into assisted and awaiting insurance authorization. The patient has no complaints and denies headache, cough, shortness of breath, chest pain, abdominal pain, nausea, vomiting, fever, chills, dysuria, diarrhea or constipation. She is voiding and eliminating without difficulty. She is up ambulating with assistance. Exam Vital Signs (past 8 hours): - 08/03/20 11:09 08/03/20 11:55 08/03/20 15:45 Temperature 96.8 F L 96.3 F L Pulse Rate 69 67 70 Respiratory Rate 16 17 Blood Pressure 127/75 125/75 107/65 Pulse Oximetry 97 97 Oxygen Delivery Method Room Air Oxygen Flow Rate 0 Narrative Exam Narrative: General: Elderly female lying in bed and in no acute distress, well-developed, well-nourished, appropriately interactive. HEENT: Normocephalic, atraumatic. External ears without defect. Pupils equal, round, and reactive to light and accommodation. Anicteric sclerae, moist conjunctivae, and no lid lag. Oropharynx free of erythema and cobble stoning with moist mucosa. Neck: Supple with full range of motion. No lymphadenopathy or thyromegaly. Cardiovascular: Regular rate and rhythm without murmurs, rubs, or gallops appreciated. Pulmonary: Clear to auscultation bilaterally without crackles, wheezes, or rhonchi. Normal respiratory effort with no use of accessory muscles. Abdomen: Soft, bowel sounds present, nontender, nondistended. No hepatosplenomegaly or masses appreciated. Extremities: No clubbing, cyanosis, or edema. Skin: Normal temperature, turgor, and texture; no rash, ulcers, or subcutaneous nodules appreciated. No signs of dehydration, Neurological: Cranial nerves grossly intact. Psychiatric: Normal mood and affect. Alert and oriented to person, place, and time. Objective Labs Result Diagrams: 08/04/20 06:25 08/04/20 06:25 Labs: Laboratory Results - last 24 hr 08/03/20 08/03/20 08/03/20 04:40 04:40 04:40 WBC 11.3 H RBC 3.61 L Hgb 10.0 L Hct 30.9 L MCV 85.5 MCH 27.8 MCHC 32.5 RDW 15.3 H Plt Count 218 Neut % (Auto) 79.1 H Lymph % (Auto) 11.4 L [place] % (Auto) 6.4 Eos % (Auto) 2.3 Baso % (Auto) 0.8 Neut # (Auto) 9000 H Lymph # (Auto) 1300 [place] # (Auto) 700 Eos # (Auto) 300 Baso # (Auto) 100 Sodium 138 Potassium 4.4 Chloride 111 H Carbon Dioxide 22 BUN 25 H Creatinine 1.16 H Estimated GFR 44.7 L BUN/Creatinine Ratio 21.6 Glucose 94 Calcium 8.6 Magnesium 1.8 Procalcitonin < 0.05 Assessment & Plan Assessment & Plan narrative: Barb Munoz is an 84-year-old female with a past medical history significant for hypertension, hyperlipidemia, hypothyroidism, breast and skin cancer who presented to the ED for generalized weakness and leg pain. 1. Generalized weakness with osteoarthritic joint pain, present on admission. Resolving. -Patient presented with generalized weakness and unable to rise up from chair, stand or walk likely due to UTI and dehydration. She is usually ambulatory at baseline without assist devices. -Patient also has multiple joint pain including ilateral knee pain left greater than right, right shoulder pain, and bilateral hip pain. Denies history of trauma or injury. No evidence of ecchymosis, swelling, or erythema. 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 No trauma found. -Continue pain control with acetaminophen 650 mg every 6 hours as needed for pain and tramadol 50 4 times daily as needed for pain. Patient's multiple joint pain controlled. -Continue physical therapy and occupational therapy evaluation and treatment. 2. Acute UTI, present on admission, active. -Prior history of urinary tract infection wiith variable sensitive E coli on urine culture. -Received nitrofurantoin by mouth in ED which was not continued due to patient's decreased renal function. -Urinalysis appeared grossly infected with urine culture growing 3 plus colony types consistent with contamination. Continue ceftriaxone 1 g IV daily. 3. Dehydration, acute, present on admission, active. -Initial sodium 144, chloride 109, potassium of 5.0 and BUN 30.3. -Continued IV fluid hydration until adequately hydrated then discontinued. Encourage PO fluid intake. 4. AMERICO on chronic kidney disease stage 3, present on admission. AMERICO resolving. -Initial creatinine 1.45. Baseline creatinine unclear but appears to be 1.2-1.4. Creatinine down to 1.16. -Continued IV fluid hydration until adequately hydrated then discontinued. Encourage PO fluid intake. -Continue to avoid nephrotoxic agents and renally dose medications. -Continue to monitor creatinine daily. 5. Hypertension, chronic, present on admission. Stable. -Held home losartan 50 mg daily due to probable AMERICO. Continue home amlodipine increased from 5 mg to 10 mg daily for better coverage while holding losartan. 6. Hyperlipidemia, chronic, present on admission. Stable. -Continue home pravastatin 80 mg daily. 7. Hypothyroidism, chronic, present on admission. Stable. -TSH normal at 0.943 and free T4 normal at 1.34. -Continue home levothyroxine 112 mcg daily. 8. History of breast cancer. -Patient had 2 reoccurrences of left breast cancer, last occurring in 2009. She has undergone 2 lumpectomies and reports no chemo or radiation therapy. No current evidence of recurrence. Code status: Full code, patient designates her brother who has POA to be her surrogate decision maker. VTE prophylaxis: Enoxaparin, SCDs Disposition: Patient to discharge tomorrow either to assisted for rehabilitation pending insurance authorization or home with home health. Quality VTE Deep Vein Thrombosis/Pulmonary Embolism Present on Admission: Yes
[2020-08-03] MEDS: ENOXAPARIN 30 MG/0.3 ML SYRINGE SUBCUT (09:33)
--- NOTE | 2020-08-03 10:14 | PT.IPTN ---
Physical Therapy Treatment Note M2 PT-IP Current Condition Start: 08/02/20 11:31 Freq: NEEDED Status: Active Protocol: Document 08/02/20 09:35 AB (Rec: 08/02/20 11:43 AB [id number]) Physical Therapy Current Condition Current Condition Evaluation Date 08/02/20 Treatment Diagnosis UTI; generalized weakness Onset Date 08/02/20 Precautions Other Precautions falls M3 PT-IP Subjective Start: 08/02/20 11:31 Freq: NEEDED Status: Active Protocol: Document 08/03/20 09:44 KS (Rec: 08/03/20 11:34 KS [id number]) Subjective Physical Therapy Visit Type Type Treatment Note Visit Start Time 09:44 Visit Stop Time 10:14 Total Visit Minutes 30 Number of [employer] Visits 1 Physical Therapy Visit Comments Patient Comments Co-treat w/ OT, pts family present during treatment. M4 PT-IP Mobility and Gait Start: 08/02/20 11:31 Freq: NEEDED Status: Active Protocol: Document 08/03/20 09:44 KS (Rec: 08/03/20 11:34 KS [id number]) PT-Bed Mobility Assessment Rolling Type of Rolling Roll to Right Level of Assist Standby Assistance Supine to Sit Supine to Sit Standby Assistance,1 Person Assistance,Bedrails Sit to Supine Sit to Supine Contact Guard Assistance,1 Person Assistance,Bedrails Scooting Scooting to Edge of Bed Contact Guard Assistance PT-Transfer Assessment Sit to and From Stand Sit to and from Stand Contact Guard Assistance, Minimal Assistance,1 Person Assistance,Use of Upper Extremities Equipment Transfer Assistive Device Gait Belt,Front Wheeled Walker Orthotic/Prosthetic Devices or Brace: No Transfers Transfer Destination Chair Transfer Technique Stand Step Pivot Transfer Ability Level of Assist Contact Guard Assistance, Minimal Assistance,1 Person Assistance,Use of Upper Extremities Comments Mobility Comments Pt was in bed upon arrival from therapy w/ daugther in room. Pt was sitting up in bed w/ HOB elevated. Pt tolerated 1x10 bilateral ankle pumps and quad sets to promote LE strengthening. OT arrived for co-treat. Pt HOB lowered to flat, pt rolled to R and sidelying<>sit SBA w/ bed rails. Pt then scooted to EOB CGA w/ cues. Pt agreed to attempt standing. Pt able to partially stand from low bed Min A, but stated she did not want to stand fully d/t fear of pain. Raised bed ~2-3 inches and pt sit<>stand CGA w / FWW and cues for sequencing and hand placement. Pt able to maintain full stand ~1 min and then completed 30 seconds weight shifting. Pt reported slight dizziness and requested to sit. Pts BP assessed and WNL. Pt then agreed to transfer to chair. Pt again sit<>stand w/ FWW CGA and cues and performed stand step pivot to chair CGA and cues. Stand<>sit CGA w/ cues for slow descent. Pt positioned in chair and left w/ OT. Gait Assessment Comments Gait Comments Please refer to mobility, stand step pivot and pre gait activities only. PT-Balance Assessment Sitting Balance and Reactions Static Sitting Balance Ability Fair Dynamic Sitting Balance Ability Fair Standing Balance and Reactions Static Standing Balance Ability Fair Dynamic Standing Balance Ability Poor Device Used FWW M5 PT-IP Objective Assessments Start: 08/02/20 11:31 Freq: NEEDED Status: Active Protocol: Document 08/02/20 09:35 AB (Rec: 08/02/20 11:43 AB [id number]) Orientation Orientation/Cognition Level of Alertness Alert Orientation Name Safety Awareness Decreased Safety Awareness Gross Range of Motion Lower Extremity ROM Assessment Within Functional Limits Strength Lower Extremity Strength Assessment Bilaterally Impaired Comments Strength Comments LLE: 4-/5 RLE 3+/5 Coordination Assessment Gross Coordination Gross Coordination WNL Muscle Tone Muscle Tone WNL Yes M6 PT-IP Treatment Start: 08/02/20 11:31 Freq: NEEDED Status: Active Protocol: Document 08/03/20 09:44 KS (Rec: 08/03/20 11:34 KS [id number]) Physical Therapy Treatment Exercises Exercises Ankle Pumps,Quad Sets Education Education Provided Safety M7 PT-IP Assessment and Plan Start: 08/02/20 11:31 Freq: NEEDED Status: Active Protocol: Document 08/03/20 09:44 KS (Rec: 08/03/20 11:34 KS [id number]) PT Summary Assessment and Plan Potential Rehabilitation Potential Good Status of Condition at Evaluation Evolving Summary Impairments Pain,ROM,Strength,Balance, Sensation,Cognition,Bed Mobility,Transfers,Gait, Activity Tolerance Progress Towards Goals Progressing Toward Goals Assessment Summary Pt SBA to CGA and cues for bed mobility, Min A for sit<> stand from low bed, CGA and cues for hand placement and sequencing for sit<>stand from slightly raised bed. Pt tolerated 1 min standing and 30 sec weight shifting before reporting slight fatigue, BP WNL. Pt then agreed to transfer to chair and sit<> stand, stand step pivot CGA and cues for FWW management, hand placement, sequencing, and slow descent. Pt showed improvements w/ bed mobility, but refused ambulation d/t pain. Pt will benefit from SNF to improve functional mobility and independence. Goals Bed Mobility Goal Independent Transfer Goal Independent,Front Wheeled Walker Gait Goal Independent,Front Wheel Walker Gait Distance 100 Other Goals up/down 2 steps L rail ascending SBA Days to Meet Goals 10 Frequency of Treatment Frequency Of Treatment Once a Day Treatment Plan Physical Therapy Treatment Plan Bed Mobility Training,Transfer Training,Gait Training, Therapeutic Exercise,Balance Retraining,Discharge Planning, Hot or Cold Pack,Neuromuscular Re-ed,Coordination Retraining Other Recommendations and Next Treatment transfers, ambulation Focus Recommendations To Nursing Amount of Assist Needed 1 Person Assist Discharge Recommendations PT Discharge Recommendations SNF Rehab Equipment Needed for Home Before FWW if pt goes home and not Discharge safe without AD Transportation Needs at Discharge Wheelchair/Cabulance
--- NOTE | 2020-08-03 10:26 | OT.IP.EVAL ---
Past Medical History (Last Reviewed 08/02/20 @ 05:32 by Miguel Banuelos DO) HTN (hypertension) (Acute) Hyperlipidemia (Acute) Hypothyroidism (Acute) Skin cancer (Acute) Surgical History (Last Updated 08/02/20 @ 02:44 by AFUA Woodall) Breast cancer (Acute) History of bilateral cataract extraction (Acute) History of hysterectomy (Acute) No pertinent past surgical history (Acute) Occupational Therapy Inpatient Evaluation/Re-Eval M1 PT/OT-IP Prior Functional Status Start: 08/02/20 12:38 Freq: NEEDED Status: Active Protocol: Document 08/03/20 10:37 [facility] (Rec: 08/03/20 11:00 [facility] [id number]) Medical Review Prior Functional Status Medical History Reviewed Yes Communication able to make needs known Mobility and Gait pt stated that she is independent with all mobilities and ambulation without AD Activities of Daily Living and IADL's Pt satets able to do on her own, except pt's family now assisting with bills and medications management needs. Social History Household Members none Living Arrangements House Number of Floors (Floors) Two Floors Number of Stairs To Enter/Railing? pt stays on main level of the house has 2 steps with L rail ascending to enter Home Environment Standard Height Toilet,Tub/ Shower Additional Social History Comment pt stated that she does not take a shower and only sponge bathes; stated that she sits on a stool and sponge off by the sink M2 OT-IP Current Condition Start: 08/02/20 12:38 Freq: Status: Active Protocol: Document 08/03/20 10:37 [facility] (Rec: 08/03/20 11:00 [facility] [id number]) Occupational Therapy Current Condition Current Condition Evaluation Date 08/03/20 Treatment Diagnosis UTI, decreased mobility and self -care Diagnosis Onset Date 08/02/20 M3 OT- IP Subjective and Pain Start: 08/02/20 12:38 Freq: Status: Active Protocol: Document 08/03/20 10:37 [facility] (Rec: 08/03/20 11:00 [facility] [id number]) OT- Subjective Occupational Therapy Visit Type Type Initial Evaluation Visit Start Time 08:36 Visit Stop Time 10:26 Total Visit Minutes 55 Notes Pt seen for split treatment [id number] and [id number]. Occupational Therapy Visit Comments Patient Comments Pt initially not wanting to get up. Patient/Caregiver Goals TO get stronger. OT Pain Assessment Pain When Pain Assessed At Rest Pain Present Pain Present Denied Pain M4 OT- IP ADL's Start: 08/02/20 12:38 Freq: Status: Active Protocol: Document 08/03/20 10:37 [facility] (Rec: 08/03/20 11:00 [facility] [id number]) OT POB-Sjff-Pkejngs General Evaluation Self-Feeding Ability Independent OT ADL-Grooming General Evaluation Grooming Ability Minimal Assistance Comments OT Grooming Comments EMEKA for completeness to brush her hair in the back due to tangles. OT ADL-Dressing General Eval Lower Body Dressing Ability Moderate Assistance Comments OT Dressing Comments Pt able to doff her socks and needing assist to yvonne her socks. OT ADL-Toileting Comments OT Toileting Comments Pt not having to go at this time. OT ADL-Bathing Comments OT Bathing Comments Pt refused. M5 OT- IP IADL's Start: 08/02/20 12:38 Freq: Status: Active Protocol: Document 08/03/20 10:37 [facility] (Rec: 08/03/20 11:00 [facility] [id number]) OT-Instrumental Activities of Daily Living Home Safety Awareness Ability to Problem Solve Emergency Able to Problem Solve Situations Medication Management Medication Management Caregiver Provides Supervision Money Management Money Management Caregiver Provides Assistance Meal Preparation Meal Preparation Comments Pt states does frozen meals or Meal on Wheels M6 OT- IP Functional Cognition Start: 08/02/20 12:38 Freq: Status: Active Protocol: Document 08/03/20 10:37 [facility] (Rec: 08/03/20 11:00 [facility] [id number]) Cognitive Factors Limiting Selfcare Function Cognitive Ability Level of Alertness Alert Patient Orientation Name,Age,Birthday,Month,Date, Year,Day of Week,Place, Situation Attention Span Ability Capable of Focused Attention, Capable of Sustained Attention Ability to Follow Commands Able to Follow Multi-Step Commands Memory Description Short Term Impaired Safety Awareness No Deficits Noted Problem Solving Ability No deficits Noted Cognitive Tests SLUMS Pt score 28/30 which for pt's level of educated implies no cognitive deficits. Pt does admit to having increased forgetfulness of not remember if she took her medications at times. Cognitive Comments Cognitive Assessment Comments Pt able to follow multiple commands. OT- Vision and Hearing OT- Hearing Assessment OT- Hearing Assessment WFL OT- Vision Assessment Visual Acuity WFL M7 OT- IP Mobility and Balance Start: 08/02/20 12:38 Freq: Status: Active Protocol: Document 08/03/20 10:37 [facility] (Rec: 08/03/20 11:00 [facility] [id number]) OT- Bed Mobility Assessment Supine to Sit Supine to Sit Assist Contact Guard Assistance,1 Person Assistance Scooting Scooting to Edge of Bed Contact Guard Assistance,1 Person Assistance OT-Transfer Assessment Sit to and From Stand Sit to and from Stand Contact Guard Assistance, Minimal Assistance,1 Person Assistance Transfers Transfer Ability Independent,Contact Guard Assistance Technique Transfer Destination Bed,Chair Transfer Technique Stand Step Pivot Devices Transfer Assistive Devices Gait Belt,Front Wheeled Walker Comments Mobility Comments Pt mainly just CGA, EMEKA to stand from lower surfaces and use of FWW CGA. Pt would benefit from a FWW if going home or would be good to trial of 4WW prior to going home. OT- Gait Assessment Comments Gait Ability Comments Pt able to use FWW with CGA. OT- Balance Assessment Sitting Balance and Reactions Static Sitting Balance Ability Normal Dynamic Sitting Balance Ability Fair Standing Balance and Reactions Static Standing Balance Ability Fair M8 OT- IP Objective Assessments Start: 08/02/20 12:38 Freq: Status: Active Protocol: Document 08/03/20 10:37 [facility] (Rec: 08/03/20 11:00 [facility] [id number]) OT Gross Range of Motion Upper Extremity Range of Motion Assessment Within Functional Limits OT Strength Comments Strength Comments Initially pt not able to raise up her right arm and only from 0-40 shoulder flexion before breakfast and now after family present WFL and not complaining of any pain now. M9 OT- IP Assessment and Plan Start: 08/02/20 12:38 Freq: Status: Active Protocol: Document 08/03/20 10:37 [facility] (Rec: 08/03/20 11:00 [facility] [email or web address]) OT Summary Assessment and Plan Potential Rehabilitation Potential Fair Analytic Complexity at Evaluation Low Summary OT Impairments Balance,Functional Mobility, Grooming,Dressing,Toileting, Bathing,Toilet Transfers, Shower Transfers,Activity Tolerance Progress Towards Goals Progressing Toward Goals Assessment Summary Pt low complexity and with UTI now having decreased activity tolerance and now having to use FWW for mobility but just tolerating a transfer from bed to recliner at this time. Prior pt was completely independent of all basic ADL's and no use of devices. Pt would benefit from short skilled rehab to help get pt back to prior level of care. Goals Grooming Goal Independent Dressing Goal Independent Toileting Goal Independent Bathing Goal Independent Toilet Transfer Goal Independent Shower Transfer Goal Independent Days to Meet Goals 7 Frequency of Treatment Frequency Of Treatment Once a Day Treatment Plan OT Treatment Plan ADL Training,Functional Mobility,Patient/Family Education,Discharge Planning Other Treatment Recommendations and Next SHower, trial of FWW Treatment Focus Discharge Recommendations OT Discharge Recommendations SNF Rehab Home Equipment Needs FWW verus 4WW Transportation Needs at Discharge Private Vehicle
[2020-08-03] MEDS: AMLODIPINE 5 MG TABLET PO (11:09)
[2020-08-03] MEDS: LOSARTAN 50 MG TABLET PO (11:09)
[2020-08-03] MEDS: CEFTRIAXONE 2 GM/50 ML FROZ.PIGGY IV (20:16)
[2020-08-03] MEDS: ROSUVASTATIN 10 MG TABLET 20 MG PO (20:16)
[2020-08-04] VITALS (7 sets, daily range): BP systolic 119–142; BP diastolic 70–96; PULSE 62–69; RESP 18; TEMP 35.9–37.1; O2SAT 92–96
[2020-08-04] MEDS: LEVOTHYROXINE 112 MCG TABLET PO (05:36)
[2020-08-04 07:00] LABS: Add Manual Diff / Slide Review NO; Basophils Absolute Auto 100 /uL (0-100); Basophils Percent Auto 1.2 % (0-2); Eosinophils Absolute Auto 300 /uL (0-450); Eosinophils Percent Auto 4.3 % (2-4); Hematocrit 32.2 % (36-46); Hemoglobin 10.3 g/dL (12.0-16.0); Lymphocytes Absolute Auto 1200 /uL (1100-4500); Lymphocytes Percent Auto 16.5 % (25-40); Mean Corpuscular Hemoglobin 27.3 PG (26-34); Mean Corpuscular Volume 85.5 fL (80-100); Monocytes Absolute Auto 500 /uL (0-900); Monocytes Percent Auto 6.5 % (3-14); Neutrophils Absolute Auto 5200 /uL (1500-7000); Neutrophils Percent Auto 71.5 % (50-75); Platelet Count 235 X10^3/uL (150-400); Red Blood Cell Count 3.77 X10^6/uL (4.0-5.2); Red Cell Distribution Width 15.3 % (11.6-14.8); White Blood Cell Count 7.3 X10^3/uL (4.5-11.0)
[2020-08-04 07:09] LABS: Magnesium 1.9 mg/dL (1.6-2.3)
[2020-08-04 07:10] LABS: BUN Creatinine Ratio 19.1 (6-22); Blood Urea Nitrogen 22 mg/dL (7-17); Calcium 8.8 mg/dL (8.4-10.2); Carbon Dioxide 24 mmol/L (22-32); Chloride 109 mmol/L (98-107); Estimated Glomerular Filt Rate 45.2 mL/min (>60); Glucose 84 mg/dL (80-110); HEMOLYSIS < 15 (0-50); Sodium 137 mmol/L (137-145)
[2020-08-04] MEDS: ENOXAPARIN 30 MG/0.3 ML SYRINGE SUBCUT (09:24)
[2020-08-04] MEDS: LOSARTAN 50 MG TABLET PO (09:24)
[2020-08-04] MEDS: ACETAMINOPHEN 325 MG TABLET 650 MG PO (09:25)
[2020-08-04] MEDS: AMLODIPINE 5 MG TABLET PO (09:25)
--- NOTE | 2020-08-04 10:27 | PT.IPTN ---
Physical Therapy Treatment Note M2 PT-IP Current Condition Start: 08/02/20 11:31 Freq: NEEDED Status: Active Protocol: Document 08/02/20 09:35 [facility] (Rec: 08/02/20 11:43 [facility] [id number]) Physical Therapy Current Condition Current Condition Evaluation Date 08/02/20 Treatment Diagnosis UTI; generalized weakness Onset Date 08/02/20 Precautions Other Precautions falls M3 PT-IP Subjective Start: 08/02/20 11:31 Freq: NEEDED Status: Active Protocol: Document 08/04/20 09:53 [facility] (Rec: 08/04/20 11:55 [facility] [id number]) Subjective Physical Therapy Visit Type Type Treatment Note Visit Start Time 09:53 Visit Stop Time 10:27 Total Visit Minutes 34 Number of FOOD PREPARATION KITCHEN AIDE Visits 2 Physical Therapy Visit Comments Patient Comments Pts daughter present during treatment. M4 PT-IP Mobility and Gait Start: 08/02/20 11:31 Freq: NEEDED Status: Active Protocol: Document 08/04/20 09:53 [facility] (Rec: 08/04/20 11:55 [facility] [id number]) PT-Bed Mobility Assessment Rolling Type of Rolling Roll to Right Level of Assist Standby Assistance Supine to Sit Supine to Sit Standby Assistance,1 Person Assistance,Head of Bed Elevated,Bedrails Sit to Supine Sit to Supine Contact Guard Assistance,1 Person Assistance,Bedrails Scooting Scooting to Edge of Bed Contact Guard Assistance PT-Transfer Assessment Sit to and From Stand Sit to and from Stand Contact Guard Assistance, Minimal Assistance,1 Person Assistance,Use of Upper Extremities Equipment Transfer Assistive Device Gait Belt,Front Wheeled Walker Orthotic/Prosthetic Devices or Brace: No Transfers Transfer Destination Bed,Chair Transfer Technique pt ambulated w/ FWW Transfer Ability Level of Assist Contact Guard Assistance, Minimal Assistance,1 Person Assistance,Use of Upper Extremities Comments Mobility Comments Pt in bed upon arrival from therapy w/ daugther in room. Pt SBA for sup<>sit w/ HOB elevated and CGA for scooting EOB. Pt then sit<>stand from bed w/ FWW CGA to Min A and cues for hand placement. Demonstrated gaitbelt application and use as well as cues for sit<>Stand to pts daugther. Pt then ambulated ~ 15 ft around room before requesting to sit in chair. Pt ambulated w/ FWW CGA slow pace w/ decreased stride and foot clearance. Pt then sit<> Stand from chair CGA to Min A w/ cues to push up from arm rests and ambulated additional 20 ft around room and back to bed. Pt CGA for sit<>sup. Pt left in bed w/ all needs in reach and SCDs on. Gait Assessment Gait Gait Assistance Required: Contact Guard Assist,1 Person Assist Distance (Feet) 35 Able to Maintain Weight Bearing Status No During Gait Assistive Devices Assistive Device Gait Belt,Front Wheeled Walker Orthotic/Prosthetic Devices or Brace: No Gait Deviations General Gait Pattern Decreased Stride Length, Decreased Feet Clearance Factors Limiting Gait Function Factors Limiting Gait Function Decreased Activity Tolerance, Decreased Strength,Pain,Poor Balance,Poor Safety Awareness Comments Gait Comments Please refer to mobility section for details. Pt agrees to ambulate only w/ FWW and pts daughter confirms she will get one today. Stair Climbing Assessment Comments Stair Climbing Comments Not assessed, ramp entry at home PT-Balance Assessment Sitting Balance and Reactions Static Sitting Balance Ability Good Dynamic Sitting Balance Ability Fair Standing Balance and Reactions Static Standing Balance Ability Fair Dynamic Standing Balance Ability Fair Device Used FWW M5 PT-IP Objective Assessments Start: 08/02/20 11:31 Freq: NEEDED Status: Active Protocol: Document 08/02/20 09:35 [facility] (Rec: 08/02/20 11:43 [facility] [id number]) Orientation Orientation/Cognition Level of Alertness Alert Orientation Name Safety Awareness Decreased Safety Awareness Gross Range of Motion Lower Extremity ROM Assessment Within Functional Limits Strength Lower Extremity Strength Assessment Bilaterally Impaired Comments Strength Comments LLE: 4-/5 RLE 3+/5 Coordination Assessment Gross Coordination Gross Coordination WNL Muscle Tone Muscle Tone WNL Yes M6 PT-IP Treatment Start: 08/02/20 11:31 Freq: NEEDED Status: Active Protocol: Document 08/04/20 09:53 [facility] (Rec: 08/04/20 11:55 [facility] [id number]) Physical Therapy Treatment Exercises Exercises Ankle Pumps,Gluteal Sets,Quad Sets Education Education Provided Safety Other Treatments Other Treatment Performed Discussed at home environement ie clear well lit pathways, home equipement/ toilet riser, grabs bars, FWW. Instructed pts daugther how to apply gaitbelt and how to provide assist to pt w/ transfers and ambulation. Pts daugther states if pt goes home, she will stay w/ her for limited time and provide pt w/ all equipment needed. M7 PT-IP Assessment and Plan Start: 08/02/20 11:31 Freq: NEEDED Status: Active Protocol: Document 08/04/20 09:53 [facility] (Rec: 08/04/20 11:55 [facility] [id number]) PT Summary Assessment and Plan Potential Rehabilitation Potential Good Status of Condition at Evaluation Evolving Summary Impairments Pain,ROM,Strength,Balance, Sensation,Cognition,Bed Mobility,Transfers,Gait, Activity Tolerance Progress Towards Goals Progressing Toward Goals Assessment Summary Pt showed progress w/ mobility and ambulation today however is still not at her baseline of ambulating w/o AD. Pt requires frequent cues for safe FWW use during transfers for hand placement and sequencing. Pt continues to have low tolerance for activity and was only able to tolerate ~35 total feet ambulation w/ FWW, requiring 2 min seated rest break after ~ 15 ft. Pt would benefit from SNF to improve tolerance for activity and functional mobility, but at very least will require HH and 24/7 assist d/t weakness and poor safety awareness w/ FWW and transfers. Pt daughter stated she will acquire home equipment for pt. Goals Bed Mobility Goal Independent Transfer Goal Independent,Front Wheeled Walker Gait Goal Independent,Front Wheel Walker Gait Distance 100 Other Goals up/down 2 steps L rail ascending SBA Days to Meet Goals 10 Frequency of Treatment Frequency Of Treatment Once a Day Treatment Plan Physical Therapy Treatment Plan Bed Mobility Training,Transfer Training,Gait Training, Therapeutic Exercise,Balance Retraining,Discharge Planning, Hot or Cold Pack,Neuromuscular Re-ed,Coordination Retraining Other Recommendations and Next Treatment transfers, ambulation Focus Recommendations To Nursing Amount of Assist Needed 1 Person Assist Discharge Recommendations PT Discharge Recommendations SNF Rehab Transportation Needs at Discharge Wheelchair/Cabulance
--- NOTE | 2020-08-04 11:12 | OT.IPNOTE ---
Attempt to try a shower with pt and pt's brother insistent that she does a sponge bath instead. Pt's brother not wanting pt to do OT at this time due to waiting to hear from the doctor and case management regarding her disposition needs
--- NOTE | 2020-08-04 13:15 | PM.DS.1 ---
History of Present Illness History of Present Illness Date Patient Seen: 08/02/20 Chief complaint: Weakness Narrative: Written by Adiel CAAL: Ms Shyann Munoz is an 84 yo female with a past medical history significant hypertension, hyperlipidemia, hypothyroidism breast and skin cancer presents to the ER for generalized weakness and leg pain. The patient lives alone [facility] and her brother came to visit and found the patient unable to get out a chair, stand or walk. She has generalized weakness and add baseline the patient is ambulatory without use of assistive devices. She states she started having pain in the back side of her left knee approximately 11:00 a.m. today. No history of trauma fall or injury. The pain has been progressive throughout the day. The patient's son called EMS. The patient acknowledges poor memory and recall however she denies complaints of fevers or chills, headaches or dizziness, nasal congestion or sore throat. She denies recent COVID-19 exposures. She denies chest pain or palpitations, shortness of breath cough or wheezing. She denies epigastric or abdominal pain but does report urinary frequency and urgency. She denies constipation states her last bowel movement was 1 day ago and describes it is normal. Upon arrival to the ER the patient has temperature 98.0?, heart rate of 87, blood pressure 136/74, respiratory rate of 24 and oxygen saturation 94% on room air. No imaging was performed in the emergency department. Twelve lead EKG has artifact, sinus rhythm ventricular rate of 79 without ectopy or block, Q-waves in lead 3 and AVF. On laboratory analysis she has white count of 11.9 with a left shift, hemoglobin of 12.1 and hematocrit of 38.3 and platelets of 294. She has a PT of 12.5 and INR 1.1. Electrolytes are within normal limits and has a BUN of 44 and a creatinine 1.45. She has an EGFR of 34.6 and BUN creatinine ratio of 30.3. Her nonfasting glucose is 137. Her liver functions are all within normal limits and has an albumin of 4.2 and ammonia less than 9. She has a total CK of 35, troponin is 0.014 and UDS is negative. Urinalysis positive for protein, blood, leukocyte esterase, wbc's and bacteria. The patient is admitted to the hospital service with urinary tract infection, self-care deficit and inability to return to her home setting with bilateral leg pain left greater than right Discharge Providers Provider Date of admission: 08/02/20 00:47 Discharge Date: 08/04/20 Primary care physician: Lucrecia Morgan MD Consults: 08/01/20 23:15 Consult to TUTORING MANAGER - Video System Repairer Stat Comment: TUTORING MANAGER Consult: [facility] Res Need 08/02/20 01:13 Consult to Discharge Planning Routine Comment: Consult to Occupational Therapy Evaluate & Treat Comment: Physician Instructions: Evaluate and treat Consult to Physical Therapy Evaluate & Treat Comment: Physician Instructions: Evaluate and Treat 08/03/20 15:26 Consult to Home Health Routine Comment: Reason For Exam: Home Health Upon DC Discharge provider: Sri Luevano DO Summary Hospital Course Discharge Diagnosis: 1. Generalized weakness with osteoarthritic joint pain, present on admission. Resolved. 2. Acute UTI, present on admission. Resolved. 3. Acute dehydration, present on admission. Resolved. 4. AMERICO on chronic kidney disease stage 3, present on admission. AMERICO resolved. 5. Hypertension, chronic, present on admission. Stable. 6. Hyperlipidemia, chronic, present on admission. Stable. 7. Hypothyroidism, chronic, present on admission. Stable. 8. History of breast cancer. Hospital Course: Barb Munoz is an 84-year-old female with a past medical history significant for hypertension, hyperlipidemia, hypothyroidism, breast and skin cancer who presented to the ED for generalized weakness and leg pain. 1. Generalized weakness with osteoarthritic joint pain, present on admission. Resolved. -Patient presented with generalized weakness and unable to rise up from chair, stand or walk likely due to UTI and dehydration. She is usually ambulatory at baseline without assist devices. -Patient also has multiple joint pain including bilateral knee pain left greater than right, right shoulder pain, and bilateral hip pain. Denies history of trauma or injury. No evidence of ecchymosis, swelling, or erythema. 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 No trauma found. -Continued pain control with acetaminophen 650 mg every 6 hours as needed for pain and tramadol 50 4 times daily as needed for pain. Patient's multiple joint pain controlled. -Continued physical therapy and occupational therapy evaluation and treatment. Patient discharged home with home health as insurance authorization was pending and patient deemed safe to go home per PT and OT. Family would like the patient to go to a skilled setting temporarily then possibly an assisted living facility due to concern for patient being unable to take care of herself [place]. 2. Acute UTI, present on admission. Resolved. -Prior history of urinary tract infection with variable sensitive E coli on urine culture. -Initial WBC elevated 11.9. WBC trended down and normalized. -Received nitrofurantoin by mouth in ED which was not continued due to patient's decreased renal function. -Urinalysis appeared grossly infected with urine culture growing 3 plus colony types consistent with contamination. Continued ceftriaxone 1 g IV daily x 3 doses and discharged on keflex 500 twice daily for 2 additional day to complete 5 days total. 3. Acute dehydration, present on admission. Resolved. -Initial sodium 144, chloride 109, potassium of 5.0 and BUN 30.3. -Continued IV fluid hydration until adequately hydrated then discontinued. Encourage PO fluid intake. 4. AMERICO on chronic kidney disease stage 3, present on admission. AMERICO resolved. -Initial creatinine 1.45. Baseline creatinine unclear but appears to be 0.9-1.2. Creatinine down to 1.15. -Continued IV fluid hydration until adequately hydrated then discontinued. Encouraged PO fluid intake. -Continued to avoid nephrotoxic agents and renally dose medications. -Continued to monitor creatinine daily. 5. Hypertension, chronic, present on admission. Stable. -Held home losartan 50 mg daily due to probable AMERICO and restarted at time of discharge. Continued home amlodipine increased from 5 mg to 10 mg daily for better coverage while holding losartan and discharged on home dose. 6. Hyperlipidemia, chronic, present on admission. Stable. -Continued home pravastatin 80 mg daily. 7. Hypothyroidism, chronic, present on admission. Stable. -TSH normal at 0.943 and free T4 normal at 1.34. -Continued home levothyroxine 112 mcg daily. 8. History of breast cancer. -Patient had 2 reoccurrences of left breast cancer, last occurring in 2009. She has undergone 2 lumpectomies and reports no chemo or radiation therapy. No current evidence of recurrence. Exam Vital Signs (past 8 hours): - 08/04/20 07:00 08/04/20 08:44 08/04/20 11:00 Temperature 98.7 F Pulse Rate 62 Respiratory Rate 18 Blood Pressure 119/86 Pulse Oximetry 94 94 94 08/04/20 11:22 Temperature 97.7 F Pulse Rate 63 Respiratory Rate 18 Blood Pressure 140/70 Pulse Oximetry 96 Oxygen Delivery Method Room Air Oxygen Flow Rate 0 Narrative Exam Narrative: General: Elderly female lying in bed and in no acute distress, well-developed, well-nourished, appropriately interactive. HEENT: Normocephalic, atraumatic. External ears without defect. Pupils equal, round, and reactive to light. Anicteric sclerae, moist conjunctivae, and no lid lag. Oropharynx free of erythema and cobble stoning with moist mucosa. Neck: Supple with full range of motion. No lymphadenopathy or thyromegaly. Cardiovascular: Regular rate and rhythm without murmurs, rubs, or gallops appreciated. Pulmonary: Clear to auscultation bilaterally without crackles, wheezes, or rhonchi. Normal respiratory effort with no use of accessory muscles. Abdomen: Soft, bowel sounds present, nontender, nondistended. No hepatosplenomegaly or masses appreciated. Extremities: No clubbing, cyanosis, or edema. Skin: Normal temperature, turgor, and texture; no rash, ulcers, or subcutaneous nodules appreciated. Neurological: Cranial nerves grossly intact. Psychiatric: Normal mood and affect. Alert and oriented to person, place, and time. Objective Labs Result Diagrams: 08/04/20 06:25 08/04/20 06:25 Labs: Laboratory Results - last 24 hr 08/04/20 08/04/20 08/04/20 06:25 06:25 06:25 WBC 7.3 RBC 3.77 L Hgb 10.3 L Hct 32.2 L MCV 85.5 MCH 27.3 MCHC 32.0 RDW 15.3 H Plt Count 235 Neut % (Auto) 71.5 Lymph % (Auto) 16.5 L Hughes % (Auto) 6.5 Eos % (Auto) 4.3 H Baso % (Auto) 1.2 Neut # (Auto) 5200 Lymph # (Auto) 1200 Hughes # (Auto) 500 Eos # (Auto) 300 Baso # (Auto) 100 Sodium 137 Potassium 4.0 Chloride 109 H Carbon Dioxide 24 BUN 22 H Creatinine 1.15 H Estimated GFR 45.2 L BUN/Creatinine Ratio 19.1 Glucose 84 Calcium 8.8 Magnesium 1.9 Discharge Plan Discharge Plan Patient Disposition: Home Discharge comment: You are being discharged home with home health for physical therapy, occupational therapy, nursing, nurse aide, bath aide, and TUTORING MANAGER. You were treated for a urinary tract infection and have been prescribed Keflex 500 mg twice daily for 2 additional days to complete the antibiotic course. Your weakness improved with treatment of the urinary tract infection. You have progressive osteoarthritis and have been prescribed tramadol 50 mg up to 4 times daily as needed for severe joint pain. You may take Tylenol as needed for mild joint pain and as directed on the bottle. Please try to stay well hydrated. Please follow-up with your primary care physician, Dr. Morgan, regarding your hospitalization. Discharge orders & Medications Prescriptions: New acetaminophen 325 mg Tablet 650 mg PO Q6HR PRN (Reason: Fever/Mild Pain (1-3)) Qty: 30 RF: 0 tramadol 50 mg Tablet 50 mg PO QID PRN (Reason: Pain, Moderate (4-6)) Qty: 10 RF: 0 cephalexin [Keflex] 500 mg capsule 500 mg PO BID Qty: 4 RF: 0 Continued amlodipine [Norvasc] 5 MG tablet 5 mg PO QDAY Qty: 0 RF: 0 pravastatin [Pravachol] 80 MG tablet 80 mg PO Q DAY Qty: 0 RF: 0 losartan 50 mg tablet 50 mg PO DAILY RF: 0 levothyroxine 100 mcg tablet 125 mcg PO DAILY RF: 0 Follow up/Referrals: Lucrecia Morgan MD [Primary Care Provider] - Diet/Activity/Treatments Diet: Carb-consistent/Diabetic, Low-fat, Low-sodium and Low-cholesterol Activity: Activity as tolerated with walker and physical and occupational therapy Visit Report/Discharge Packet Instructions: The Mediterranean Diet and Good Health, DI for Dehydration -- Adult, DI for Urinary Tract Infection (UTI), DI for Osteoarthritis Visit Report Forms: Patient Portal/API, Stroke Signs & Symptoms Discharge Data Primary Care Provider: Lucrecia Morgan Attending Provider: Adiel Stone Admit Date/Time: 08/02/20 00:47 Discharges patient from system. Discharge Date/Time: 08/04/20 14:19 Quality VTE Deep Vein Thrombosis/Pulmonary Embolism Present on Admission: Yes
--- NOTE | 2020-08-04 13:17 | PC.NURSE ---
1300 Urinary catheter removed per doctor order. Pt tolerated procedure well. Catheter tip intact. Urine output 400mL via catheter.
--- NOTE | 2020-08-04 14:47 | CM.DPNOTE ---
DC Note Worked on DCP throughout yesterday and today. Patient improving functionally each day and has been cleared for return home today w/walker, family to assist and [facility] RN/PT/OT/DIESEL AUTOMOTIVE TECHNICIAN. This PRODUCT DEVELOPMENT CHEMIST attempted to secure SNF placement at [facility] yesterday and today. [facility] never responded to April at [facility], no denial or auth and [facility] is closed for the weekend. Relayed to patient and family and they were disappointed but dtr requested this PRODUCT DEVELOPMENT CHEMIST ask if they could pay privately for at least a few days before patient returns home? Contacted [facility] this morning and she explained that they cannot take private reimbursement from family if there has not yet been a denial from an insurance co (?) Updated patient and family w/ Dr Luevano at bedside. Patient states she is feeling better, family hesitant but understand patient will be DC today and agreeable to taking patient home w/ assist from [facility]. Dtr will be staying w/patient for an additional 10 days. Reviewed topic of both short term plan and prison; Short term- [facility] will be able to visit Thursday the . Patient improving w/therapy team and cleared to return home w/family to assist, patient eager to do so. Encouraged family to place call to April at [facility] Thursday in case [facility] provides auth and they can admit patient directly from home setting, call PCP Dr Morgan's office for assist Senior Resource Guide provided for research on in home cg agencies and truck terminal manager care facility options (local) [facility]- Decide on whether patient will remain in [place] or move to [place] w/dtr and get on JOHN! Application needed and placement options need to be researched. Patient and family agreeable to thi P: DC today, home w/family assistance, [facility] RN/PT/OT/DIESEL AUTOMOTIVE TECHNICIAN. Faxed referral Thursday, face sheet, HH order, [facility], [facility]. DC Summary not available yet to fax today. SHIMON Cason
== END 2020-08-04 14:19 | disposition home or self-care (01) ==
LOC: ED 08-02 00:39 → AC 08-02 00:48
PROVIDERS: Internal Medicine; Admitting Provider Nurse Practitioner Adult Health; Emergency Provider Emergency Medicine; PCP Internal Medicine; Referring Provider Emergency Medicine; Visit Provider Nurse Practitioner Adult Health
DX: R53.1 Weakness (principal); N30.01 Acute cystitis with hematuria; E86.0 Dehydration; N18.3 Chronic kidney disease, stage 3 (moderate); I10 Essential (primary) hypertension; M79.662 Pain in left lower leg; M79.661 Pain in right lower leg; E78.5 Hyperlipidemia, unspecified; E03.9 Hypothyroidism, unspecified; Z85.3 Personal history of malignant neoplasm of breast; Z11.59 Encounter for screening for other viral diseases
CPT/HCPCS: 36415; 73560; 80048; 80053; 80320; 80329; 81001; 82140; 82550; 83036; 83690; 83735; 84145; 84439; 84443; 84481; 84484; 85025; 85610; 87086; 87635; 93005; 93010; 96361; 96365; 96372; 96376; 97110; 97116; 97162; 97165; 97530; 99284; G0378; G0480; J0696; J1650; J7050